=== PATIENT | female | born 1935 | race Caucasian/White ===

== ENCOUNTER 2018-03-30 10:04 | Inpatient (IN) | payer MEDICARE, BC ==
--- NOTE | 2018-03-30 11:14 | XR ---
EXAMINATION TYPE: XR shoulder complete RT DATE OF EXAM: 03/30/2018 CLINICAL HISTORY: Fall injury with right shoulder pain TECHNIQUE: Three views of the right shoulder are obtained. COMPARISON: None. FINDINGS: Osseous structures are demineralized. There is no acute fracture/dislocation evident in th e right shoulder. There is moderate to advanced joint space loss with mild to moderate spurring at ac romioclavicular joint. There is high riding humeral head suggesting chronic rotator cuff tear. There is moderate glenohumeral joint space loss. There is oval 1 cm ossific density likely reflecting loose body within joint space related to product of DJD. The visualized ribs are intact and unremarkable. Chronic parenchymal changes are seen in visualized right lung. IMPRESSION: There is no acute fracture or dislocation in the right shoulder.
--- NOTE | 2018-03-30 11:16 | XR ---
EXAMINATION TYPE: XR chest 1V DATE OF EXAM: 03/30/2018 COMPARISON: Chest x-ray October 20, 2016. HISTORY: Pain after fall injury. TECHNIQUE: Single frontal view of the chest is obtained. FINDINGS: There is chronic parenchymal change without suspicious new focal air space opacity, pleura l effusion, or pneumothorax seen. The cardiac silhouette size is enlarged with atherosclerotic aorta . Retrocardiac opacity consistent with hiatal hernia is present. There is chronic thickening of rig ht paratracheal stripe redemonstrated. Consider thyroid goiter. The osseous structures remain deminer alized. Underlying scoliosis is again seen. Degenerative change both shoulders is redemonstrated. IMPRESSION: Chronic changes and cardiomegaly without acute pulmonary process.
[2018-03-30] MEDS ORDERED: IPRATROPIUM-ALBUTEROL 3 ML NEB INHALATION STA (11:34)
[2018-03-30] MEDS ORDERED: SODIUM CHLORIDE 0.9% 1,000 ML IV STA (11:34)
--- NOTE | 2018-03-30 12:01 | ED ---
General Adult HPI - General Chief complaint: Fall Stated complaint: Fall Time Seen by Provider: 03/30/18 10:37 Source: patient, EMS, RN notes reviewed, old records reviewed Mode of arrival: EMS Limitations: no limitations - History of Present Illness Initial comments: This is an 83-year-old female to the ER for evaluation today. This patient's presenting for evaluation regards to falls, multiple falls with weakness. Shortness of breath, patient states she gets short of breath while walking and does fall down. Patient fell down landing on right side right shoulder right arm. Complaining of right arm pain. She states she always has had right arm pain was unable to move right arm. Also complaining of dehydration - Related Data Home Medications Medication Instructions Recorded Confirmed Kenneth Cit/Mag/D3/Zn/Wind Up Operator/Herber/Bor 1 tab PO DAILY 03/27/14 03/30/18 [Citracal-Vit D + Magnesium Tab] Levothyroxine Sodium [Synthroid] 25 mcg PO DAILY 03/27/14 03/30/18 Mirtazapine [Remeron] 45 mg PO HS 03/27/14 03/30/18 HYDROcodone/APAP 10-325MG [[place] 1 tab PO Q6H PRN 04/23/15 03/30/18 10-325] Benazepril/Hydrochlorothiazide 1 tab PO HS 10/19/16 03/30/18 [Benazepril-Hctz 20-25 mg Tab] Citalopram Hydrobromide [CeleXA] 20 mg PO DAILY 10/19/16 03/30/18 Pantoprazole Sodium [Protonix] 40 mg PO HS 10/19/16 03/30/18 Vitamin B Complex 1 cap PO DAILY 10/19/16 03/30/18 Etodolac [Lodine] 400 mg PO DAILY 03/30/18 03/30/18 Montelukast [Singulair] 10 mg PO DAILY 03/30/18 03/30/18 Previous Rx's Medication Instructions Recorded ALPRAZolam [Xanax] 0.25 mg PO BID #60 tab 10/21/16 Apixaban [Eliquis] 5 mg PO BID #70 tab 10/21/16 Cholecalciferol [Vitamin D3] 1,000 unit PO DAILY tab 10/21/16 Allergies Allergy/AdvReac Type Severity Reaction Status Date / Time epinephrine AdvReac Rapid Verified 03/30/18 10:37 Heart Rate Review of Systems ROS Statement: Those systems with pertinent positive or pertinent negative responses have been documented in the HPI. ROS Other: All systems not noted in ROS Statement are negative. Past Medical History Past Medical History: Asthma, GERD/Reflux, Hypertension, Osteoarthritis (OA), Thyroid Disorder Additional Past Medical History / Comment(s): ulcerative colitis, osteoporosis, scoliosis History of Any Multi-Drug Resistant Organisms: None Reported Past Surgical History: Appendectomy, Hysterectomy Additional Past Surgical History / Comment(s): thyroidectomy, orif right femur, right tib/fib, right shoulder surg. cataract surgery Past Anesthesia/Blood Transfusion Reactions: No Reported Reaction Past Psychological History: No Psychological Hx Reported Smoking Status: Never smoker Past Alcohol Use History: None Reported Past Drug Use History: None Reported - Past Family History Father Family Medical History: No Reported History Mother Family Medical History: Thyroid Disorder Additional Family Medical History / Comment(s): arthritis General Exam Limitations: no limitations General appearance: alert, in no apparent distress Head exam: Present: atraumatic, normocephalic, normal inspection Eye exam: Present: normal appearance, PERRL, EOMI. Absent: scleral icterus, conjunctival injection, periorbital swelling ENT exam: Present: normal exam, mucous membranes moist Neck exam: Present: normal inspection. Absent: tenderness, meningismus, lymphadenopathy Respiratory exam: Present: normal lung sounds bilaterally, wheezes, accessory muscle use, decreased breath sounds, prolonged expiratory. Absent: respiratory distress, rales, rhonchi, stridor Cardiovascular Exam: Present: regular rate, normal rhythm, normal heart sounds. Absent: systolic murmur, diastolic murmur, rubs, gallop, clicks GI/Abdominal exam: Present: soft, normal bowel sounds. Absent: distended, tenderness, guarding, rebound, rigid Extremities exam: Present: normal inspection, full ROM, normal capillary refill. Absent: tenderness, pedal edema, joint swelling, calf tenderness Back exam: Present: normal inspection Neurological exam: Present: alert, oriented X3, CN II-XII intact Psychiatric exam: Present: normal affect, normal mood Skin exam: Present: warm, dry, intact, normal color. Absent: rash Course Vital Signs 03/30/18 03/30/18 03/30/18 10:08 12:37 12:39 Temperature 98.8 F Pulse Rate 90 88 88 Respiratory 16 16 Rate Blood Pressure 144/85 161/74 O2 Sat by Pulse 96 91 L Oximetry 03/30/18 13:03 Temperature Pulse Rate 88 Respiratory Rate Blood Pressure O2 Sat by Pulse Oximetry - Reevaluation(s) Reevaluation #1: 03/30/18 13:16 After convincing patient extensively to get labs clinical status, weakness, clinical dehydration found to be in renal failure, patient refusing to admit to hospital, patient will sign an AGAINSTMEDICALADVICE understanding risk include significant decompensation including EKG Findings - EKG Comments: EKG Findings:: EKG shows normal sinus rhythm rate of 85, VT 198, QRS 84, QTC 456 Medical Decision Making - Medical Decision Making 83 female the ER for vaginal multiple falls and weakness. Patient does have severe renal failure secondary dehydration. Patient be admitted for IV resuscitation, monitoring and this PTOT - Lab Data Result diagrams: 03/30/18 12:23 03/30/18 12:23 Lab Results 03/30/18 03/30/18 03/30/18 Range/Units 12:23 12:23 12:23 WBC 8.2 (3.8-10.6) k/uL RBC 3.32 L (3.80-5.40) m/uL Hgb 9.5 L (11.4-16.0) gm/dL Hct 29.7 L (34.0-46.0) % MCV 89.5 (80.0-100.0) fL MCH 28.5 (25.0-35.0) pg MCHC 31.9 (31.0-37.0) g/dL RDW 15.2 (11.5-15.5) % Plt Count 211 (150-450) k/uL Neutrophils % 77 % Lymphocytes % 12 % Monocytes % 7 % Eosinophils % 2 % Basophils % 0 % Neutrophils # 6.3 (1.3-7.7) k/uL Lymphocytes # 0.9 L (1.0-4.8) k/uL Monocytes # 0.6 (0-1.0) k/uL Eosinophils # 0.1 (0-0.7) k/uL Basophils # 0.0 (0-0.2) k/uL PT (9.0-12.0) sec INR (<1.2) APTT (22.0-30.0) sec Sodium 143 (137-145) mmol/L Potassium 4.1 (3.5-5.1) mmol/L Chloride 102 (98-107) mmol/L Carbon Dioxide 28 (22-30) mmol/L Anion Gap 13 mmol/L BUN 48 H (7-17) mg/dL Creatinine 2.56 H (0.52-1.04) mg/dL Est GFR (CKD-EPI)AfAm 19 (>60 ml/min/1.73 sqM) Est GFR (CKD-EPI)NonAf 17 (>60 ml/min/1.73 sqM) Glucose 101 H (74-99) mg/dL Calcium 9.0 (8.4-10.2) mg/dL Phosphorus 4.6 H (2.5-4.5) mg/dL Magnesium 2.3 (1.6-2.3) mg/dL Total Bilirubin 0.6 (0.2-1.3) mg/dL AST 15 (14-36) U/L ALT 18 (9-52) U/L Alkaline Phosphatase 80 (38-126) U/L Total Creatine Kinase 89 (30-135) U/L CK-MB (CK-2) 0.7 (0.0-2.4) ng/mL CK-MB (CK-2) Rel Index 0.8 Troponin I <0.012 (0.000-0.034) ng/mL Total Protein 6.5 (6.3-8.2) g/dL Albumin 3.6 (3.5-5.0) g/dL Urine Color Urine Appearance (Clear) Urine pH (5.0-8.0) Ur Specific [place] (1.001-1.035) Urine Protein (Negative) Urine Glucose (UA) (Negative) Urine Ketones (Negative) Urine Blood (Negative) Urine Nitrite (Negative) Urine Bilirubin (Negative) Urine Urobilinogen (<2.0) mg/dL Ur Leukocyte Esterase (Negative) Ur Squamous Epith Cells (0-4) /hpf Amorphous Sediment (None) /hpf Urine Bacteria (None) /hpf Urine Mucus (None) /hpf 03/30/18 03/30/18 Range/Units 12:23 12:45 WBC (3.8-10.6) k/uL RBC (3.80-5.40) m/uL Hgb (11.4-16.0) gm/dL Hct (34.0-46.0) % MCV (80.0-100.0) fL MCH (25.0-35.0) pg MCHC (31.0-37.0) g/dL RDW (11.5-15.5) % Plt Count (150-450) k/uL Neutrophils % % Lymphocytes % % Monocytes % % Eosinophils % % Basophils % % Neutrophils # (1.3-7.7) k/uL Lymphocytes # (1.0-4.8) k/uL Monocytes # (0-1.0) k/uL Eosinophils # (0-0.7) k/uL Basophils # (0-0.2) k/uL PT 9.8 (9.0-12.0) sec INR 1.0 (<1.2) APTT 19.4 L (22.0-30.0) sec Sodium (137-145) mmol/L Potassium (3.5-5.1) mmol/L Chloride (98-107) mmol/L Carbon Dioxide (22-30) mmol/L Anion Gap mmol/L BUN (7-17) mg/dL Creatinine (0.52-1.04) mg/dL Est GFR (CKD-EPI)AfAm (>60 ml/min/1.73 sqM) Est GFR (CKD-EPI)NonAf (>60 ml/min/1.73 sqM) Glucose (74-99) mg/dL Calcium (8.4-10.2) mg/dL Phosphorus (2.5-4.5) mg/dL Magnesium (1.6-2.3) mg/dL Total Bilirubin (0.2-1.3) mg/dL AST (14-36) U/L ALT (9-52) U/L Alkaline Phosphatase (38-126) U/L Total Creatine Kinase (30-135) U/L CK-MB (CK-2) (0.0-2.4) ng/mL CK-MB (CK-2) Rel Index Troponin I (0.000-0.034) ng/mL Total Protein (6.3-8.2) g/dL Albumin (3.5-5.0) g/dL Urine Color Yellow Urine Appearance Clear (Clear) Urine pH 5.0 (5.0-8.0) Ur Specific [place] 1.015 (1.001-1.035) Urine Protein 1+ H (Negative) Urine Glucose (UA) Negative (Negative) Urine Ketones Negative (Negative) Urine Blood Negative (Negative) Urine Nitrite Negative (Negative) Urine Bilirubin 2+ H (Negative) Urine Urobilinogen <2.0 (<2.0) mg/dL Ur Leukocyte Esterase Negative (Negative) Ur Squamous Epith Cells 1 (0-4) /hpf Amorphous Sediment Rare H (None) /hpf Urine Bacteria Rare H (None) /hpf Urine Mucus Rare H (None) /hpf - Radiology Data Radiology results: report reviewed (X-ray chest and right shoulder negative for traumatic injury), image reviewed Disposition Clinical Impression: Fall, Right shoulder pain, Acute renal failure, Dehydration, Weakness Disposition: ADMITTED IP TO THIS [facility] Condition: Fair Is patient prescribed a controlled substance at d/c from ED?: No Referrals: German Joiner MD [Primary Care Provider] - 1-2 days
[2018-03-30 12:42] LABS: Basophils % (A) 0 %; Eosinophils # (A) 0.1 k/uL (0-0.7); Eosinophils % (A) 2 %; HCT 29.7 % (34.0-46.0); HGB 9.5 gm/dL (11.4-16.0); Lymphocytes # (A) 0.9 k/uL (1.0-4.8); Lymphocytes % (A) 12 %; MCH 28.5 pg (25.0-35.0); MCHC 31.9 g/dL (31.0-37.0); MCV 89.5 fL (80.0-100.0); Mean Platelet Volume 8.2; Monocytes # (A) 0.6 k/uL (0-1.0); Monocytes % (A) 7 %; Neutrophils # (A) 6.3 k/uL (1.3-7.7); Neutrophils % (A) 77 %; Platelet Count 211 k/uL (150-450); RBC 3.32 m/uL (3.80-5.40); RDW 15.2 % (11.5-15.5); WBC 8.2 k/uL (3.8-10.6)
[2018-03-30 12:53] LABS: Albumin 3.6 g/dL (3.5-5.0); Magnesium 2.3 mg/dL (1.6-2.3); Phosphorus 4.6 mg/dL (2.5-4.5); Potassium 4.1 mmol/L (3.5-5.1); Prothrombin Time 9.8 sec (9.0-12.0); Total Bilirubin 0.6 mg/dL (0.2-1.3); Total Protein 6.5 g/dL (6.3-8.2)
[2018-03-30 13:03] LABS: Creatine Kinase 89 U/L (30-135)
[2018-03-30 13:03] LABS: Amorphous Sediment,Urine Rare /hpf; Appearance,Urine Clear (Clear); Bacteria,Urine Rare /hpf; Bilirubin,Urine 2+ (Negative); Blood,Urine Negative (Negative); Color,Urine Yellow; Glucose,Urine (UA) Negative (Negative); Ketones,Urine Negative (Negative); Leukocyte Esterase,Urine Negative (Negative); Mucus,Urine Rare /hpf; Nitrite,Urine Negative (Negative); Protein,Urine 1+ (Negative); Specific Gravity,Urine 1.015 (1.001-1.035); Squamous Epithelial Cell,Urine 1 /hpf (0-4); Urobilinogen,Urine <2.0 mg/dL (<2.0)
[2018-03-30 13:05] LABS: Partial Thromboplastin Time 19.4 sec (22.0-30.0)
[2018-03-30 13:15] LABS: Creatine Kinase MB 0.7 ng/mL (0.0-2.4); Troponin I <0.012 ng/mL (0.000-0.034)
[2018-03-30] MEDS ORDERED: SODIUM CHLORIDE 0.9% 1,000 ML IV ONE (13:27)
[2018-03-30] MEDS: HYDROcodone/APAP 10-325MG 1 EACH TAB PO PRN (15:44)
[2018-03-30] MEDS: ALPRAZolam 0.25 MG TAB PO SCH (20:34)
[2018-03-30] MEDS: HYDROCHLOROTHIAZIDE 25 MG TAB PO SCH (20:34)
[2018-03-30] MEDS: MIRTAZAPINE 45 MG TABLET PO SCH (20:35)
[2018-03-30] MEDS: LISINOPRIL 20 MG TAB PO SCH (20:35)
[2018-03-30] MEDS: PANTOPRAZOLE 40 MG TABLET PO SCH (20:35)
--- NOTE | 2018-03-31 00:14 | HP ---
HISTORY AND PHYSICAL ATTENDING PHYSICIAN: Dr. Chris Joiner. CHIEF COMPLAINT: Fall at home. HISTORY OF PRESENT ILLNESS: An 83-year-old female was brought into the emergency room by the , where she had fallen a couple of days ago and complained of pain in the shoulder. He was concerned that the patient might have an injury. She was brought into the ER by ambulance. The patient did not want to come to the hospital. She denies any other symptoms. She did have some neck pain and shoulder pain. The patient took a fall a couple days ago getting out of the bed. The hospital tries to help her most of the time; however, sometimes she just tries to get out of bed on her own. The patient also is exhibiting some increased confusion over the past 3 days. The patient on evaluation in the emergency room was noted to have evidence suggestive of some acute renal failure suspected secondary to dehydration. The patient is admitted to the hospital in view of this. PAST MEDICAL HISTORY: Primarily significant for bronchial asthma, hypertension, DVT. 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 Due to this, she has some had some unsteadiness. The patient also has a history of depression, chronic arthritic symptoms, osteoporosis. No history of any liver disease or kidney disease, ulcers, TB, hepatitis. No history of rheumatic fever, myocardial infarction, CVA. Does exhibit mild cognitive impairments. PAST SURGICAL HISTORY: Significant for right knee arthroplasty and also right hand surgery, right femur surgery. PERSONAL HISTORY: Nonsmoker. No alcohol. ALLERGIES: Sensitive to EPINEPHRINE. MEDICATIONS: Include: 1. [place] 10/325 q.i.d. p.r.n. 2. Vitamin D3. 3. Vitamin B. 4. Eye vitamins. 5. Singular 10 mg daily. 6. Remeron 45 mg daily. 7. Benazepril/hydrochlorothiazide 20/25 one daily. 8. Eliquis 5 mg b.i.d. 9. Xanax 0.25 mg b.i.d. 10.Protonix 40 mg daily. 11.Synthroid 25 mcg daily. 12.Lodine 400 mg daily. 13.Celexa 20 mg daily. SOCIAL HISTORY: The patient is , lives with her spouse. FAMILY MEDICAL HISTORY: The patient has 1 son in good health. Mother from the osteoporosis and 1 brother with history of mitral regurgitation. REVIEW OF SYSTEMS: NEURO: Denies any headaches, dizziness. Denies any double vision, blurred vision. PSYCH: No anxiety. Being treated for depression. CARDIAC: Denies chest pain, angina, palpitation. RESPIRATORY: Denies shortness of breath, cough, hemoptysis. GI: No nausea, vomiting, abdominal pain, diarrhea. : No symptoms of dysuria, hematuria, urgency, frequency. EXTREMITIES: No pain. Mild chronic edema. CONSTITUTIONAL: No fever, chills. HEMATOLOGICAL: No anemia or bleeding disorder. ENDOCRINE: No history of diabetes mellitus. History of hypothyroidism. SKIN: No rashes. CONSTITUTIONAL: No fever, chills. PHYSICAL EXAMINATION: Pleasant female in no distress. VITAL SIGNS: Temperature 98.6, pulse 77, respirations 16, blood pressure 122/75, pulse ox 97% on 2L. HEENT: Normocephalic. Neck: Mildly decreased range of motion. Pupils reactive. Nostrils clear. Oral cavity moist. Ears reveal no drainage. Neck reveals no JVD, carotid bruits or thyromegaly. Chest is clear to auscultation. CARDIAC: Normal S1, S2 with no gallop. Systolic murmur 2/6 left sternal border. ABDOMEN: Soft. No palpable masses. Bowel sounds normal. No organomegaly. No abdominal bruits. Extremities reveal trace edema of the right lower leg. The patient's right shoulder has some pain, but decreased range of motion. Neurologically, otherwise mildly confused intermittently. Otherwise, the patient has equal hand grasps, moves both arms adequately except for mild range of motion decreased of the shoulder due to pain. Plantars are equivocal. LABORATORY ASSESSMENT: Hemoglobin 9.5. INR is normal. Electrolytes normal. BUN 48, creatinine 2.56. Phosphorus 4.6. Troponins negative. UA was 2+ bilirubin, 1+ protein, otherwise unremarkable. ASSESSMENT: 1. Acute renal failure secondary to dehydration. 2. Dehydration. 3. Mild cognitive impairment. 4. Hypertension. 5. Degenerative arthritis. 6. Fall at home. PLAN: Patient at present is stable. Continue present medical regimen. Will continue hydration and recheck the patient's lytes, BUN and creatinine in the morning. I had a long discussion with the patient and spouse regarding potential placement for rehab and they are in agreement. The patient has been to [facility] before and prefers to go there. The patient's condition discussed with the patient. MMODL / IJN: [id number] /
[2018-03-31] MEDS: LEVOTHYROXINE 25 MCG TAB PO SCH (07:26)
[2018-03-31 07:54] LABS: Calcium 9.2 mg/dL (8.4-10.2); HCT 27.4 % (34.0-46.0); HGB 9.1 gm/dL (11.4-16.0); MCH 29.8 pg (25.0-35.0); MCHC 33.1 g/dL (31.0-37.0); MCV 90.1 fL (80.0-100.0); Mean Platelet Volume 8.3; Platelet Count 228 k/uL (150-450); RBC 3.04 m/uL (3.80-5.40); RDW 14.8 % (11.5-15.5); WBC 6.5 k/uL (3.8-10.6)
[2018-03-31] MEDS: MONTELUKAST 10 MG TAB PO SCH (08:58)
[2018-03-31] MEDS: ENOXAPARIN 40 MG/0.4 ML SYRINGE SQ SCH (08:58)
[2018-03-31] MEDS: MULTIVITAMINS, THERA 1 EACH TAB PO SCH (08:58)
[2018-03-31] MEDS: B COMPLEX-VIT C-VIT E-ZINC 1 EACH TAB PO SCH (08:58)
[2018-03-31] MEDS: CITALOPRAM HYDROBROMIDE 20 MG TAB PO SCH (08:58)
[2018-03-31] MEDS: CHOLECALCIFEROL 1,000 UNIT TAB PO SCH (08:58)
[2018-03-31] MEDS: ALPRAZolam 0.25 MG TAB PO SCH ×2 (10:15→21:53)
[2018-03-31] MEDS: HYDROcodone/APAP 10-325MG 1 EACH TAB PO PRN ×3 (11:29→22:41)
[2018-03-31 12:37] LABS: Iron Saturation 6.45 (12.00-45.00)
[2018-03-31] MEDS: MIRTAZAPINE 45 MG TABLET PO SCH (21:53)
[2018-03-31] MEDS: HYDROCHLOROTHIAZIDE 25 MG TAB PO SCH (21:53)
[2018-03-31] MEDS: LISINOPRIL 20 MG TAB PO SCH (21:53)
[2018-03-31] MEDS: PANTOPRAZOLE 40 MG TABLET PO SCH (21:53)
[2018-04-01] MEDS: HYDROcodone/APAP 10-325MG 1 EACH TAB PO PRN ×3 (05:27→21:01)
[2018-04-01] MEDS ORDERED: SODIUM FERRIC GLUCONAT-SUCROSE 125 MG in SODIUM CHLORIDE 0.9% 100 ML IVPB SCH (09:00)
[2018-04-01] MEDS: ALPRAZolam 0.25 MG TAB PO SCH ×2 (09:13→21:01)
[2018-04-01] MEDS: LEVOTHYROXINE 25 MCG TAB PO SCH (09:13)
[2018-04-01] MEDS: B COMPLEX-VIT C-VIT E-ZINC 1 EACH TAB PO SCH (09:14)
[2018-04-01] MEDS: ENOXAPARIN 40 MG/0.4 ML SYRINGE SQ SCH (09:14)
[2018-04-01] MEDS: CHOLECALCIFEROL 1,000 UNIT TAB PO SCH (09:15)
[2018-04-01] MEDS: MONTELUKAST 10 MG TAB PO SCH (09:15)
[2018-04-01] MEDS: CITALOPRAM HYDROBROMIDE 20 MG TAB PO SCH (09:15)
[2018-04-01] MEDS ORDERED: FUROSEMIDE 10 MG/ML 2 ML VIAL IV ONE (09:53)
--- NOTE | 2018-04-01 11:33 | P.PN ---
Subjective Progress Note Date: 04/01/18 This 83-year-old female was admitted to the hospital after being brought in the emergency room following a mechanical fall and these about 2 days prior to admission. Patient was complaining of significant pain just laying around the bed. The spouse elected to bring her in the emergency room to be evaluated. She is noted to have markedly elevated BUN/creatinine with a GFR of 17. Patient 's felt to be dehydrated. There was no dizziness prior to the fall. She is in view of this admitted to the hospital hydrated. The patient's renal function is improved. She does have underlying in the history of chronic kidney disease stage III and she is back to baseline. Patient does have a long-standing history of hypertension, degenerative arthritis underlying depression with lack of motivation. The patient has a history of falls in the past. 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 In view of this she does have some disequilibrium. She does use a walker at home. The patient due to her lack of motivation is not very active. The spouse tries hard to get her moving. She is to see physical therapist on the outpatient and does well for a while. Does have underlying mild cognitive impairment REVIEW OF SYSTEMS: Neuro: Denies any headaches dizziness. Psych: No anxiety depression Cardiac: Denies chest pain and angina palpitations. Respiratory: Denies shortness of breath cough. GI: Denies nausea vomiting or abdominal pain. No diarrhea or constipation, no bowel movement yet. Poor appetite : Denies dysuria hematuria. Extremities: Denies pain. No edema. Skin: Intact. Constitutional: No fever, chills. Objective - Vital Signs Vital signs: Vital Signs Temp 98.2 F 04/01/18 07:00 Pulse 73 04/01/18 07:00 Resp 15 04/01/18 07:00 BP 137/77 04/01/18 07:00 Pulse Ox 92 L 04/01/18 07:00 Intake & Output 03/31/18 04/01/18 04/01/18 18:59 06:59 18:59 Intake Total 625 1840 Balance 625 1840 Intake: Intake, IV Titration 800 Amount Sodium Chloride 0.9% 1, 800 000 ml @ 100 mls/hr IV . Q10H ONE Rx#:[id number] Oral 363 1040 Other: Voiding Method Bedpan Bedpan Bedpan Incontinent Incontinent Incontinent # Voids 3 2 # Bowel Movements 4 PHYSICAL EXAMINATION: Cooperative, at present in no acute distress. HEENT: Neck decreased range of motion no JVD Chest: Clear to auscultation Cardiac: Normal S1-S2 no gallops no murmur . Abdomen: Soft bowel sounds present. Extremities: No edema no tenderness Neurologically: Awake oriented to person moves both upper and lower extremities adequately - Labs CBC & Chem 7: 03/31/18 07:05 03/31/18 07:05 Labs: Abnormal Lab Results - Last 24 Hours (Table) 03/31/18 Range/Units 07:05 Iron 18 L (50-170) ug/dL Iron Saturation 6.45 L (12.00-45.00) Microbiology - Last 24 Hours (Table) 03/30/18 12:45 Urine Culture - Final Urine,Voided Assessment and Plan Assessment: ASSESSMENT: 1. Acute on chronic renal failure resolved. 2. Dehydration. 3. Chronic kidney disease stage III secondary to hypertensive nephropathy. 4. Hypertension benign. 5. Cognitive impairment. 6. Fall at home. 7. Right shoulder pain. 8. Depression 9. Debility. PLAN: Continue present medical regimen patient's condition is discussed with the patient. Awaiting transfer to nursing facility for rehab will discontinue patient's IV fluids today. Patient out of bed to try and help ambulate. .
--- NOTE | 2018-04-01 12:01 | PN ---
PROGRESS NOTE DATE OF SERVICE: 03/31/2018 CHIEF COMPLAINT: Re-evaluation. This patient was seen on 03/31/2018 for followup. The patient was admitted to the hospital because of acute renal failure secondary to dehydration. The patient had a fall at home a couple of days prior. The patient was seen in the ER because of pain in the shoulder. The patient also has had history of falls. She has generalized weakness, lying in bed most of the time. Denied any dizziness before the fall. The patient has some degree of underlying mild dementia. She has a long-standing history of hypertension. The patient is feeling better today. REVIEW OF SYSTEMS: NEURO: Denies any headaches, dizziness. PSYCH: No anxiety. CARDIAC: Denies chest pain, angina, palpitation. RESPIRATORY: Denies shortness of breath, cough. GI: No nausea, vomiting, abdominal pain, diarrhea. No bowel movement. : No symptoms of dysuria, hematuria. EXTREMITIES: Denies pain, edema. CONSTITUTIONAL: No fever, chills. PHYSICAL EXAMINATION: Pleasant female in no distress. Vital signs revealed temperature 98.3, pulse 77, respiration 15, blood pressure 121/70, pulse ox 91% on room air. HEENT: Normocephalic. NECK: No JVD. CHEST: Clear to auscultation. CARDIAC: Distant heart sounds S1, S2 with no gallop. Systolic murmur 2/6, left sternal border. ABDOMEN: Soft. Bowel sounds present. Extremities reveal no edema. Neurologically awake, alert, oriented to person, place. Moves both upper and lower extremities. She has some pain with movements of the right shoulder area. LABORATORY ASSESSMENT: Hemoglobin stable at 9.1, BUN 26, creatinine 1.09. ASSESSMENT: 1. Acute renal failure, resolved. 2. Chronic kidney disease. 3. Dehydration, resolved. 4. Chronic anemia, iron deficiency. 5. Mild dementia. 6. Degenerative arthritis. 7. Fall at home. 8. Depression. PLAN: Continue present medical regimen. Patient's condition discussed with the patient. Prognosis guarded. Potential transfer to nursing facility for rehab. MMJULIET / LESLY: [id number] /
[2018-04-01] MEDS: MULTIVITAMINS, THERA 1 EACH TAB PO SCH (13:16)
[2018-04-01] MEDS: HYDROCHLOROTHIAZIDE 25 MG TAB PO SCH (21:02)
[2018-04-01] MEDS: PANTOPRAZOLE 40 MG TABLET PO SCH (21:02)
[2018-04-01] MEDS: LISINOPRIL 20 MG TAB PO SCH (21:02)
[2018-04-01] MEDS: MIRTAZAPINE 45 MG TABLET PO SCH (21:02)
[2018-04-01] MEDS ORDERED: DOCUSATE 100 MG CAP PO PRN (21:44)
[2018-04-01] MEDS: DOCUSATE 100 MG CAP PO SCH (22:30)
[2018-04-02] MEDS: LEVOTHYROXINE 25 MCG TAB PO SCH (06:07)
[2018-04-02] MEDS: B COMPLEX-VIT C-VIT E-ZINC 1 EACH TAB PO SCH (08:27)
[2018-04-02] MEDS: ENOXAPARIN 40 MG/0.4 ML SYRINGE SQ SCH (08:27)
[2018-04-02] MEDS: DOCUSATE 100 MG CAP PO SCH ×2 (08:27→19:50)
[2018-04-02] MEDS: CHOLECALCIFEROL 1,000 UNIT TAB PO SCH (08:27)
[2018-04-02] MEDS: MONTELUKAST 10 MG TAB PO SCH (08:27)
[2018-04-02] MEDS: HYDROcodone/APAP 10-325MG 1 EACH TAB PO PRN ×3 (08:28→21:46)
[2018-04-02] MEDS: ALPRAZolam 0.25 MG TAB PO SCH ×2 (08:28→19:50)
[2018-04-02] MEDS: CITALOPRAM HYDROBROMIDE 20 MG TAB PO SCH (08:57)
[2018-04-02] MEDS: MULTIVITAMINS, THERA 1 EACH TAB PO SCH (11:23)
[2018-04-02] MEDS: PANTOPRAZOLE 40 MG TABLET PO SCH (19:51)
[2018-04-02] MEDS: MIRTAZAPINE 45 MG TABLET PO SCH (19:51)
[2018-04-02] MEDS: LISINOPRIL 20 MG TAB PO SCH (19:51)
[2018-04-02] MEDS: HYDROCHLOROTHIAZIDE 25 MG TAB PO SCH (19:51)
--- NOTE | 2018-04-03 00:02 | PN ---
PROGRESS NOTE DATE OF SERVICE: 04/02/2018. CHIEF COMPLAINT: Reevaluation. HISTORY OF PRESENT ILLNESS: An 83-year-old female admitted to this facility after a fall at home. The patient was noted to have acute renal failure secondary to dehydration. The patient also has underlying history of significant degenerative arthritis and chronic pain. The patient has low motivation. REVIEW OF SYSTEMS: NEURO: Denies any headaches or dizziness. PSYCH: No anxiety. CARDIAC: No chest pain, angina, palpitation. RESPIRATORY: No shortness of breath, cough. GI: No nausea, vomiting, abdominal pain, diarrhea, appetite is poor. : No symptoms of dysuria or hematuria. EXTREMITIES: Pain in the right shoulder. CONSTITUTIONAL: No fevers or chills. PHYSICAL EXAMINATION: Pleasant female in no distress. VITAL SIGNS: Temperature 98.2, pulse 70, respirations 16, blood pressure 144/82, pulse ox 97% on 2 L. HEENT: Normocephalic. NECK: Supple. No JVD. CHEST: Clear to auscultation. CARDIAC: Normal S1, S2 with no gallops. EXTREMITIES: No edema. Good pulses both upper and lower extremities. NEUROLOGIC: Awake, alert, oriented. No edema. Good pulses both upper lower extremities. NEUROLOGIC: Awake, alert, oriented to person. She has evidence of mild dementia. Moves both upper and lower extremities adequately. LABORATORY ASSESSMENT: None new. ASSESSMENT: 1. Dehydration resolved. 2. Acute renal failure secondary to dehydration. 3. Chronic kidney disease. 4. Anemia, iron deficiency. 5. Depression. 6. Debility. PLAN: 1. Continue present medication. 2. Patient awaiting transfer to nursing facility for rehab. MMODL / IJN: [id number] /
[2018-04-03] MEDS: LEVOTHYROXINE 25 MCG TAB PO SCH (05:11)
--- NOTE | 2018-04-03 08:24 | P.DS ---
Providers Date of admission: 03/30/18 13:28 Attending physician: German Joiner Primary care physician: German Joiner [facility] Course: This 83-year-old female was admitted to the hospital after evaluation in the emergency room. She had fallen couple days prior and a complaint of shoulder pain. The patient was brought in the emergency room by the family to be evaluated for any fractures. Following evaluation no fractures noted. The patient however was noted to have acute renal failure with dehydration. The patient does have a history of chronic kidney disease stage III. The patient has not been drinking enough fluids. IV fluids administered with hydration patient's renal function back to baseline. Patient somewhat more alert. She does have underlying depression on medical therapy for the same. The patient is quite disabled because of inactivity. She is at high risk for falls and has had previous falls with fractures. In view of this the patient's recommended rehabilitation. Patient's eating fair advised to drink more fluids. Diagnoses: 1. Acute on chronic renal failure 2. Chronic kidney disease stage III 3. Hypertension 4. Dehydration 5 depression 6 osteoporosis 7 chronic anxiety 8 hypothyroidism Patient Condition at Discharge: Fair Plan - Discharge Summary Discharge Rx Participant: Yes New Discharge Prescriptions: Continue Levothyroxine Sodium [Synthroid] 25 mcg PO DAILY Mirtazapine [Remeron] 45 mg PO HS Kenneth Cit/Mag/D3/Zn/Water Meter Mechanic/Herber/Bor [Citracal-Vit D + Magnesium Tab] 1 tab PO DAILY HYDROcodone/APAP 10-325MG [[place] 10-325] 1 tab PO Q6H PRN PRN Reason: Pain Citalopram Hydrobromide [CeleXA] 20 mg PO DAILY Pantoprazole Sodium [Protonix] 40 mg PO HS Benazepril/Hydrochlorothiazide [Benazepril-Hctz 20-25 mg Tab] 1 tab PO HS Vitamin B Complex 1 cap PO DAILY Apixaban [Eliquis] 5 mg PO BID #70 tab Cholecalciferol [Vitamin D3] 1,000 unit PO DAILY tab ALPRAZolam [Xanax] 0.25 mg PO BID #60 tab Montelukast [Singulair] 10 mg PO DAILY Discontinued Etodolac [Lodine] 400 mg PO DAILY Discharge Medication List Kenneth Cit/Mag/D3/Zn/Water Meter Mechanic/Herber/Bor [Citracal-Vit D + Magnesium Tab] 1 tab PO DAILY 03/27/14 [History] Levothyroxine Sodium [Synthroid] 25 mcg PO DAILY 03/27/14 [History] Mirtazapine [Remeron] 45 mg PO HS 03/27/14 [History] HYDROcodone/APAP 10-325MG [[place] 10-325] 1 tab PO Q6H PRN 04/23/15 [History] Benazepril/Hydrochlorothiazide [Benazepril-Hctz 20-25 mg Tab] 1 tab PO HS [History] Citalopram Hydrobromide [CeleXA] 20 mg PO DAILY 10/19/16 [History] Pantoprazole Sodium [Protonix] 40 mg PO HS 10/19/16 [History] Vitamin B Complex 1 cap PO DAILY 10/19/16 [History] ALPRAZolam [Xanax] 0.25 mg PO BID #60 tab 10/21/16 [Rx] Apixaban [Eliquis] 5 mg PO BID #70 tab 10/21/16 [Rx] Cholecalciferol [Vitamin D3] 1,000 unit PO DAILY tab 10/21/16 [Rx] Montelukast [Singulair] 10 mg PO DAILY 03/30/18 [History] Follow up Appointment(s)/Referral(s): German Joiner MD [Primary Care Provider] - 1-2 days
[2018-04-03] MEDS: ENOXAPARIN 40 MG/0.4 ML SYRINGE SQ SCH (08:36)
[2018-04-03] MEDS: ALPRAZolam 0.25 MG TAB PO SCH ×2 (08:36→20:33)
[2018-04-03] MEDS: B COMPLEX-VIT C-VIT E-ZINC 1 EACH TAB PO SCH (08:36)
[2018-04-03] MEDS: CITALOPRAM HYDROBROMIDE 20 MG TAB PO SCH (08:36)
[2018-04-03] MEDS: MULTIVITAMINS, THERA 1 EACH TAB PO SCH (08:36)
[2018-04-03] MEDS: CHOLECALCIFEROL 1,000 UNIT TAB PO SCH (08:36)
[2018-04-03] MEDS: MONTELUKAST 10 MG TAB PO SCH (08:36)
[2018-04-03] MEDS: DOCUSATE 100 MG CAP PO SCH ×2 (08:36→20:33)
[2018-04-03] MEDS: HYDROcodone/APAP 10-325MG 1 EACH TAB PO PRN ×3 (11:20→23:02)
[2018-04-03] MEDS ORDERED: ALPRAZolam 0.25 MG TAB PO STA (16:05)
[2018-04-03] MEDS: PANTOPRAZOLE 40 MG TABLET PO SCH (20:33)
[2018-04-03] MEDS: MIRTAZAPINE 45 MG TABLET PO SCH (20:33)
[2018-04-03] MEDS: LISINOPRIL 20 MG TAB PO SCH (20:33)
[2018-04-03] MEDS: HYDROCHLOROTHIAZIDE 25 MG TAB PO SCH (20:33)
[2018-04-03 23:35] VITALS: RESP 14
--- NOTE | 2018-04-03 23:54 | PN ---
PROGRESS NOTE CHIEF COMPLAINT: Re-evaluation. HISTORY OF PRESENT ILLNESS: This elderly female, 83 years of age, was admitted to the hospital after a fall at home. The patient was noted to be dehydrated and had acute on chronic renal failure. The patient's dehydration resolved. The patient's renal function is back to baseline. The patient has significant weakness, high risk of falling. The patient is recommended physical therapy and rehabilitation. Patient is awaiting possible transfer to a nursing facility for the same. REVIEW OF SYSTEMS: NEURO: Denies any headaches, dizziness. PSYCH: No anxiety. The patient has some depression. CARDIAC: No chest pain, angina, palpitation. RESPIRATORY: No shortness of breath, cough. GI: No nausea, vomiting, abdominal pain, diarrhea. : No symptoms of dysuria, hematuria. EXTREMITIES: Denies pain. CONSTITUTIONAL: No fever or chills. PHYSICAL EXAMINATION: Pleasant female in no distress. Vital signs revealed temperature 98.6, pulse 78, respirations 16, blood pressure 152/85, pulse ox 97% on 2 L. HEENT: Normocephalic. NECK: No JVD. CHEST: Clear to auscultation. CARDIAC: Normal S1, S2 with no gallops, murmurs. ABDOMEN: Soft. Bowel sounds present. EXTREMITIES: No edema. Neurologically awake, alert, oriented to place, person. Moves both upper and lower extremities adequately. LABORATORY ASSESSMENT: None. ASSESSMENT: 1. Acute on chronic renal failure, improved. 2. Chronic kidney disease, stage III. 3. Hypertension. 4. Hypothyroidism. 5. Cognitive impairment. 6. Depression. 7. Recent fall. 8. Debility. PLAN: The patient is stable. Continue present medical regimen. Patient's condition was discussed with the patient. Awaiting possible transfer to rehab. MMODL / IJN: [id number] /
[2018-04-04] MEDS: LEVOTHYROXINE 25 MCG TAB PO SCH (05:58)
[2018-04-04] MEDS: B COMPLEX-VIT C-VIT E-ZINC 1 EACH TAB PO SCH (08:44)
[2018-04-04] MEDS: CHOLECALCIFEROL 1,000 UNIT TAB PO SCH (08:44)
[2018-04-04] MEDS: ALPRAZolam 0.25 MG TAB PO SCH (08:44)
[2018-04-04] MEDS: MONTELUKAST 10 MG TAB PO SCH (08:45)
[2018-04-04] MEDS: ENOXAPARIN 40 MG/0.4 ML SYRINGE SQ SCH (08:45)
[2018-04-04] MEDS: CITALOPRAM HYDROBROMIDE 20 MG TAB PO SCH (08:45)
[2018-04-04] MEDS: DOCUSATE 100 MG CAP PO SCH (08:45)
[2018-04-04] MEDS: MULTIVITAMINS, THERA 1 EACH TAB PO SCH (08:45)
[2018-04-04 09:34] VITALS: BP 164/90; PULSE 78; TEMP 98.1
[2018-04-04] MEDS: HYDROcodone/APAP 10-325MG 1 EACH TAB PO PRN (10:11)
== END 2018-04-04 14:00 | DRG 684 ==
LOC: EC 10:04 → 3SUR 13:28
PROVIDERS: ADMIT Internal Medicine; ATTEND Internal Medicine
DX: N17.9 Acute kidney failure, unspecified (principal); D50.9 Iron deficiency anemia, unspecified; E86.0 Dehydration; E89.0 Postprocedural hypothyroidism; F03.90 Unspecified dementia, unspecified severity, without behavioral disturbance, psychotic disturbance, mood disturbance, and anxiety; F32.9 Major depressive disorder, single episode, unspecified; F41.9 Anxiety disorder, unspecified; I12.9 Hypertensive chronic kidney disease with stage 1 through stage 4 chronic kidney disease, or unspecified chronic kidney disease; J45.909 Unspecified asthma, uncomplicated; K21.9 Gastro-esophageal reflux disease without esophagitis; M19.90 Unspecified osteoarthritis, unspecified site; M41.9 Scoliosis, unspecified; M81.0 Age-related osteoporosis without current pathological fracture; N18.3 Chronic kidney disease, stage 3 (moderate); R29.6 Repeated falls; G89.29 Other chronic pain; M25.511 Pain in right shoulder; M54.2 Cervicalgia; M79.601 Pain in right arm; R32 Unspecified urinary incontinence; Z79.01 Long term (current) use of anticoagulants; Z79.890 Hormone replacement therapy; Z79.899 Other long term (current) drug therapy; Z88.8 Allergy status to other drugs, medicaments and biological substances; Z90.710 Acquired absence of both cervix and uterus; Z98.49 Cataract extraction status, unspecified eye; Z96.1 Presence of intraocular lens; Z90.49 Acquired absence of other specified parts of digestive tract; Z82.62 Family history of osteoporosis; Z82.49 Family history of ischemic heart disease and other diseases of the circulatory system; W19.XXXA Unspecified fall, initial encounter; Y92.009 Unspecified place in unspecified non-institutional (private) residence as the place of occurrence of the external cause
CPT/HCPCS: 36415; 71045; 80048; 80053; 81001; 82550; 82553; 82728; 83540; 83550; 83735; 84100; 84484; 85025; 85027; 85610; 85730; 87086; 93005; 94640; 94760; 96360; 99285

== ENCOUNTER 2019-06-15 08:51 | Emergency (ER) | payer MEDICARE, BC ==
[2019-06-15 09:01] VITALS: RESP 18; TEMP 98.5
--- NOTE | 2019-06-15 10:04 | ED ---
General Adult HPI - General Chief complaint: Fall Stated complaint: Back pain Time Seen by Provider: 06/15/19 09:00 Source: patient, RN notes reviewed Mode of arrival: EMS Limitations: no limitations - History of Present Illness Initial comments: This is an 84-year-old female presents emergency Department with her . Patient states she doesn't need to be here and has no complaints. states she fell last and has been having increased arm pain and he would like an x-ray. also states she's becoming weaker and weaker and he would like at least a small workup to determine if there is any reason for her being week because it is difficult to bring her to the doctor's. - Related Data Home Medications Medication Instructions Recorded Confirmed Levothyroxine Sodium [Synthroid] 25 mcg PO DAILY 03/27/14 06/15/19 Mirtazapine [Remeron] 45 mg PO HS 03/27/14 06/15/19 Benazepril/Hydrochlorothiazide 1 tab PO HS 10/19/16 06/15/19 [Benazepril-Hctz 20-25 mg Tab] Citalopram Hydrobromide [CeleXA] 20 mg PO DAILY 10/19/16 06/15/19 Pantoprazole Sodium [Protonix] 40 mg PO HS 10/19/16 06/15/19 Montelukast [Singulair] 10 mg PO DAILY 03/30/18 06/15/19 ALPRAZolam [Xanax] 0.25 mg PO TID PRN 06/15/19 06/15/19 Etodolac [Lodine] 400 mg PO DAILY 06/15/19 06/15/19 Previous Rx's Medication Instructions Recorded Nitrofurantoin Monohyd/M-Cryst 100 mg PO Q12HR #14 cap 06/15/19 [Macrobid] Allergies Allergy/AdvReac Type Severity Reaction Status Date / Time epinephrine AdvReac Rapid Verified 06/15/19 09:19 Heart Rate Review of Systems ROS Statement: Those systems with pertinent positive or pertinent negative responses have been documented in the HPI. ROS Other: All systems not noted in ROS Statement are negative. Past Medical History Past Medical History: Asthma, Deep Vein Thrombosis (DVT), GERD/Reflux, Hypertension, Osteoarthritis (OA), Pneumonia, Thyroid Disorder Additional Past Medical History / Comment(s): Bronchitis, sinus problems, R femoral vein DVT, arthritis multiple joints, osteoporosis, scoliosis, occasional back pain, multiple fractures, falls, double vision in r eye at times, ulcerative colitis once, hypothyriod, incontinent or urine at times. History of Any Multi-Drug Resistant Organisms: None Reported Past Surgical History: Appendectomy, Hysterectomy Additional Past Surgical History / Comment(s): thyroidectomy d/t goiter, orif right femur/ has pins, right tib/fib, right shoulder surgery twice, bilateral cataract surgery with lens implants, R eye strabismus surgery, epidural injections to back. Past Anesthesia/Blood Transfusion Reactions: No Reported Reaction Past Psychological History: No Psychological Hx Reported Smoking Status: Never smoker Past Alcohol Use History: None Reported Past Drug Use History: None Reported - Past Family History Father Family Medical History: Myocardial Infarction (NE) Additional Family Medical History / Comment(s): Father of a NE at the age of 78yrs. Mother Family Medical History: Thyroid Disorder Additional Family Medical History / Comment(s): arthritis General Exam - General Exam Comments Initial Comments: GENERAL: Patient is well-developed and well-nourished. Patient is nontoxic and well- hydrated and is in no acute distress. ENT: Neck is soft and supple. No significant lymphadenopathy is noted. Oropharynx is clear. Moist mucous membranes. Neck has full range of motion without eliciting any pain. EYES: The sclera were anicteric and conjunctiva were pink and moist. Extraocular movements were intact and pupils were equal round and reactive to light. Eyelids were unremarkable. PULMONARY: Unlabored respirations. Good breath sounds bilaterally. No audible rales rho nchi or wheezing was noted. CARDIOVASCULAR: There is a regular rate and rhythm without any murmurs gallops or rubs. ABDOMEN: Soft and nontender with normal bowel sounds. No palpable organomegaly was noted. There is no palpable pulsatile mass. SKIN: Skin is clear with no lesions or rashes and otherwise unremarkable. NEUROLOGIC: Patient is alert and oriented x3. Cranial nerves II through XII are grossly intact. Motor and sensory are also intact. Normal speech, volume and content. Symmetrical smile. MUSCULOSKELETAL: Normal extremities with adequate strength and full range of motion. No lower extremity swelling or edema. No calf tenderness. LYMPHATICS: No significant lymphadenopathy is noted PSYCHIATRIC: Normal psychiatric evaluation. Limitations: no limitations Course Vital Signs 06/15/19 08:57 Temperature 98.5 F Pulse Rate 76 Respiratory 18 Rate Blood Pressure 145/84 O2 Sat by Pulse 96 Oximetry Medical Decision Making - Medical Decision Making EKG shows sinus rhythm at 66 bpm ME interval is 212 QRS is 92 QT interval is 416 QTC is 436. Patient's EKG shows no ST segment elevation or depression or T wave abnormalities are noted. Bilateral humerus x-ray showed no fracture. Chest x-ray shows possible subacute to acute fractures of the fourth through sixth ribs. Patient denies pain there. - Lab Data Result diagrams: 06/15/19 10:12 06/15/19 10:12 Lab Results 06/15/19 06/15/19 06/15/19 Range/Units 10:12 10:12 10:12 WBC 6.0 (3.8-10.6) k/uL RBC 3.40 L (3.80-5.40) m/uL Hgb 9.1 L (11.4-16.0) gm/dL Hct 30.8 L (34.0-46.0) % MCV 90.6 (80.0-100.0) fL MCH 26.9 (25.0-35.0) pg MCHC 29.7 L (31.0-37.0) g/dL RDW 15.6 H (11.5-15.5) % Plt Count 274 (150-450) k/uL Neutrophils % 71 % Lymphocytes % 17 % Monocytes % 7 % Eosinophils % 3 % Basophils % 0 % Neutrophils # 4.2 (1.3-7.7) k/uL Lymphocytes # 1.0 (1.0-4.8) k/uL Monocytes # 0.4 (0-1.0) k/uL Eosinophils # 0.2 (0-0.7) k/uL Basophils # 0.0 (0-0.2) k/uL Hypochromasia Slight PT (9.0-12.0) sec INR (<1.2) APTT (22.0-30.0) sec Sodium 140 (137-145) mmol/L Potassium 4.8 (3.5-5.1) mmol/L Chloride 100 (98-107) mmol/L Carbon Dioxide 32 H (22-30) mmol/L Anion Gap 8 mmol/L BUN 38 H (7-17) mg/dL Creatinine 1.23 H (0.52-1.04) mg/dL Est GFR (CKD-EPI)AfAm 47 (>60 ml/min/1.73 sqM) Est GFR (CKD-EPI)NonAf 41 (>60 ml/min/1.73 sqM) Glucose 83 (74-99) mg/dL Plasma Lactic Acid Zachary 1.2 (0.7-2.0) mmol/L Calcium 9.5 (8.4-10.2) mg/dL Total Bilirubin 0.6 (0.2-1.3) mg/dL AST 25 (14-36) U/L ALT 9 (9-52) U/L Alkaline Phosphatase 67 (38-126) U/L Troponin I (0.000-0.034) ng/mL Total Protein 7.7 (6.3-8.2) g/dL Albumin 3.8 (3.5-5.0) g/dL Urine Color Urine Appearance (Clear) Urine pH (5.0-8.0) Ur Specific [place] (1.001-1.035) Urine Protein (Negative) Urine Glucose (UA) (Negative) Urine Ketones (Negative) Urine Blood (Negative) Urine Nitrite (Negative) Urine Bilirubin (Negative) Urine Urobilinogen (<2.0) mg/dL Ur Leukocyte Esterase (Negative) Urine RBC (0-5) /hpf Urine WBC (0-5) /hpf Ur Squamous Epith Cells (0-4) /hpf Urine Bacteria (None) /hpf Hyaline Casts (0-2) /lpf Urine Mucus (None) /hpf 06/15/19 06/15/19 06/15/19 Range/Units 10:12 10:12 12:51 WBC (3.8-10.6) k/uL RBC (3.80-5.40) m/uL Hgb (11.4-16.0) gm/dL Hct (34.0-46.0) % MCV (80.0-100.0) fL MCH (25.0-35.0) pg MCHC (31.0-37.0) g/dL RDW (11.5-15.5) % Plt Count (150-450) k/uL Neutrophils % % Lymphocytes % % Monocytes % % Eosinophils % % Basophils % % Neutrophils # (1.3-7.7) k/uL Lymphocytes # (1.0-4.8) k/uL Monocytes # (0-1.0) k/uL Eosinophils # (0-0.7) k/uL Basophils # (0-0.2) k/uL Hypochromasia PT 10.0 (9.0-12.0) sec INR 0.9 (<1.2) APTT 22.3 (22.0-30.0) sec Sodium (137-145) mmol/L Potassium (3.5-5.1) mmol/L Chloride (98-107) mmol/L Carbon Dioxide (22-30) mmol/L Anion Gap mmol/L BUN (7-17) mg/dL Creatinine (0.52-1.04) mg/dL Est GFR (CKD-EPI)AfAm (>60 ml/min/1.73 sqM) Est GFR (CKD-EPI)NonAf (>60 ml/min/1.73 sqM) Glucose (74-99) mg/dL Plasma Lactic Acid Zachary (0.7-2.0) mmol/L Calcium (8.4-10.2) mg/dL Total Bilirubin (0.2-1.3) mg/dL AST (14-36) U/L ALT (9-52) U/L Alkaline Phosphatase (38-126) U/L Troponin I <0.012 (0.000-0.034) ng/mL Total Protein (6.3-8.2) g/dL Albumin (3.5-5.0) g/dL Urine Color Yellow Urine Appearance Clear (Clear) Urine pH 5.5 (5.0-8.0) Ur Specific [place] 1.018 (1.001-1.035) Urine Protein Negative (Negative) Urine Glucose (UA) Negative (Negative) Urine Ketones Negative (Negative) Urine Blood Negative (Negative) Urine Nitrite Positive H (Negative) Urine Bilirubin 3+ H (Negative) Urine Urobilinogen <2.0 (<2.0) mg/dL Ur Leukocyte Esterase Moderate H (Negative) Urine RBC <1 (0-5) /hpf Urine WBC 6 H (0-5) /hpf Ur Squamous Epith Cells 1 (0-4) /hpf Urine Bacteria Moderate H (None) /hpf Hyaline Casts 2 (0-2) /lpf Urine Mucus Rare H (None) /hpf Disposition Clinical Impression: Rib fractures, Urinary tract infection Disposition: HOME SELF-CARE Condition: Good Instructions (If sedation given, give patient instructions): Fall Prevention for Older Adults (ED), Urinary Tract Infection in Women (ED), Rib Fracture (ED) Prescriptions: Nitrofurantoin Monohyd/M-Cryst [Macrobid] 100 mg PO Q12HR #14 cap Is patient prescribed a controlled substance at d/c from ED?: No Referrals: German Joiner MD [Primary Care Provider] - 1-2 days Time of Disposition: 13:12
[2019-06-15 10:37] LABS: Basophils % (A) 0 %; Eosinophils # (A) 0.2 k/uL (0-0.7); Eosinophils % (A) 3 %; HCT 30.8 % (34.0-46.0); HGB 9.1 gm/dL (11.4-16.0); Hypochromasia Slight; Lymphocytes % (A) 17 %; MCH 26.9 pg (25.0-35.0); MCHC 29.7 g/dL (31.0-37.0); MCV 90.6 fL (80.0-100.0); Mean Platelet Volume 7.7; Monocytes # (A) 0.4 k/uL (0-1.0); Monocytes % (A) 7 %; Neutrophils # (A) 4.2 k/uL (1.3-7.7); Neutrophils % (A) 71 %; Platelet Count 274 k/uL (150-450); RDW 15.6 % (11.5-15.5)
[2019-06-15 10:47] LABS: Albumin 3.8 g/dL (3.5-5.0); Calcium 9.5 mg/dL (8.4-10.2); Total Bilirubin 0.6 mg/dL (0.2-1.3); Total Protein 7.7 g/dL (6.3-8.2)
[2019-06-15 10:49] LABS: INR 0.9 (<1.2); Partial Thromboplastin Time 22.3 sec (22.0-30.0)
[2019-06-15 11:00] LABS: Potassium 4.8 mmol/L (3.5-5.1)
--- NOTE | 2019-06-15 11:44 | XR ---
EXAMINATION TYPE: XR chest 2V DATE OF EXAM: 06/15/2019 COMPARISON: 03/30/2018 HISTORY: Weakness TECHNIQUE: Frontal and lateral views of the chest are obtained. FINDINGS: Again there is chronic increased density in caliber of the right paratracheal space. Thyro id goiter is possible is suggested on the prior exam, vascular ectasia, or vascular aneurysm. This is seen however dating back to 2016. Remainder the cardiomediastinal silhouette is also enlarged. Diffu se osseous demineralization and left rib fractures that appear acute to subacute are seen of ribs 4, 5, and 6 posteriorly. There is a partial intrathoracic stomach seen. Lungs are clear without evidence of focal consolidation, pleural effusion or pneumothorax. Vertebral body heights are difficult to de lineate given the diffuse osseous demineralization. If there is back pain MRI or CT would be recommen ded. IMPRESSION: 1. No acute cardiopulmonary process. 2. Acute to subacute fractures of ribs 4 through 6 on the left. 3. Partial intrathoracic stomach. 4. Chronic enlargement of the right paratracheal space dating back to 2016. Differential includes thy roid goiter, vascular ectasia, or vascular aneurysm.
--- NOTE | 2019-06-15 11:47 | XR ---
EXAMINATION TYPE: XR humerus bilateral DATE OF EXAM: 06/15/2019 CLINICAL HISTORY: Left arm pain TECHNIQUE: Two views of the bilateral humeri are obtained. COMPARISON: None. FINDINGS: There is diffuse osseous demineralization. There is no acute fracture or dislocation seen in either humerus. The bilateral shoulder and elbow joints appear aligned. There is moderate acromio clavicular arthropathy and glenohumeral arthropathy. Rib fractures of ribs 4 through 6 are better see n on the chest x-ray of the same date. These appear acute to subacute and overall nondisplaced. Addit ional bilateral fractures of ribs 8 and 9 are also seen. The overlying soft tissue appears within nor mal limits. Loose joint body is incidentally noted on the right in the glenohumeral joint. IMPRESSION: No acute fracture or dislocation is evident in the either humerus. Acute to subacute rib fractures of ribs 4 through 6 on the left and 8 and 9.
[2019-06-15 13:02] LABS: Appearance,Urine Clear (Clear); Bacteria,Urine Moderate /hpf; Bilirubin,Urine 3+ (Negative); Blood,Urine Negative (Negative); Color,Urine Yellow; Glucose,Urine (UA) Negative (Negative); Hyaline Casts,Urine 2 /lpf (0-2); Ketones,Urine Negative (Negative); Leukocyte Esterase,Urine Moderate (Negative); Mucus,Urine Rare /hpf; Nitrite,Urine Positive (Negative); PH, Urine 5.5 (5.0-8.0); Protein,Urine Negative (Negative); RBC,Urine <1 /hpf (0-5); Specific Gravity,Urine 1.018 (1.001-1.035); Squamous Epithelial Cell,Urine 1 /hpf (0-4); Urobilinogen,Urine <2.0 mg/dL (<2.0); WBC,Urine 6 /hpf (0-5)
[2019-06-15] MEDS ORDERED: cefTRIAXone IN SWFI 1,000 MG/10 ML SYRINGE IVP STA (13:10)
[2019-06-15 14:33] VITALS: BP 165/91; PULSE 80
== END 2019-06-15 14:31 | disposition home or self-care (01) ==
LOC: EC 08:51
DX: S22.42XA Multiple fractures of ribs, left side, initial encounter for closed fracture (principal); N39.0 Urinary tract infection, site not specified; J45.909 Unspecified asthma, uncomplicated; I10 Essential (primary) hypertension; K21.9 Gastro-esophageal reflux disease without esophagitis; M19.90 Unspecified osteoarthritis, unspecified site; E03.9 Hypothyroidism, unspecified; M81.0 Age-related osteoporosis without current pathological fracture; Z86.718 Personal history of other venous thrombosis and embolism; Z79.899 Other long term (current) drug therapy; Z88.8 Allergy status to other drugs, medicaments and biological substances; W06.XXXA Fall from bed, initial encounter
CPT/HCPCS: 36415; 71046; 80053; 81001; 83605; 84484; 85025; 85610; 85730; 93005; 96374; 99284

== ENCOUNTER 2020-08-18 10:12 | Inpatient (IN) | payer MEDICARE, BC ==
[2020-08-18] MEDS ORDERED: SODIUM CHLORIDE 0.9% 1,000 ML IV STA (12:26)
[2020-08-18] MEDS ORDERED: PANTOPRAZOLE 40 MG/10 ML VIAL IVP STA (12:26)
--- NOTE | 2020-08-18 12:36 | ED ---
General Adult HPI - General Chief complaint: GI Bleed Stated complaint: GI bleed Time Seen by Provider: 08/18/20 12:00 Source: patient, family, RN notes reviewed Mode of arrival: ambulatory Limitations: no limitations - History of Present Illness Initial comments: Patient is a pleasant 85-year-old female presenting to the emergency Department with complaints of coffee-ground emesis. Onset of sodium was yesterday. Patient vomited a couple times with black coffee-ground appearance. Patient is also had some dark stools. Patient has been somewhat fatigued and chilled. No abdominal pain. No history of similar symptoms previously. Patient is on E liquis. - Related Data Home Medications Medication Instructions Recorded Confirmed Levothyroxine Sodium [Synthroid] 25 mcg PO DAILY 03/27/14 06/15/19 Mirtazapine [Remeron] 45 mg PO HS 03/27/14 06/15/19 Benazepril/Hydrochlorothiazide 1 tab PO HS 10/19/16 06/15/19 [Benazepril-Hctz 20-25 mg Tab] Citalopram Hydrobromide [CeleXA] 20 mg PO DAILY 10/19/16 06/15/19 Pantoprazole Sodium [Protonix] 40 mg PO HS 10/19/16 06/15/19 Montelukast [Singulair] 10 mg PO DAILY 03/30/18 06/15/19 ALPRAZolam [Xanax] 0.25 mg PO TID PRN 06/15/19 06/15/19 Etodolac [Lodine] 400 mg PO DAILY 06/15/19 06/15/19 Previous Rx's Medication Instructions Recorded Nitrofurantoin Monohyd/M-Cryst 100 mg PO Q12HR #14 cap 06/15/19 [Macrobid] Allergies Allergy/AdvReac Type Severity Reaction Status Date / Time epinephrine AdvReac Rapid Verified 08/18/20 10:40 Heart Rate Review of Systems ROS Statement: Those systems with pertinent positive or pertinent negative responses have been documented in the HPI. ROS Other: All systems not noted in ROS Statement are negative. Constitutional: Denies: fever Eyes: Denies: eye pain ENT: Denies: ear pain Respiratory: Denies: cough, dyspnea Cardiovascular: Denies: chest pain Endocrine: Reports: fatigue Gastrointestinal: Reports: melena, other (Coffee-ground emesis). Denies: abdominal pain Genitourinary: Denies: dysuria Musculoskeletal: Denies: back pain Skin: Denies: rash Neurological: Denies: headache Past Medical History Past Medical History: Asthma, Deep Vein Thrombosis (DVT), GERD/Reflux, Hypertension, Osteoarthritis (OA), Pneumonia, Thyroid Disorder Additional Past Medical History / Comment(s): Bronchitis, sinus problems, R femoral vein DVT, arthritis multiple joints, osteoporosis, scoliosis, occasional back pain, multiple fractures, falls, double vision in r eye at times, ulcerative colitis once, hypothyriod, incontinent or urine at times. History of Any Multi-Drug Resistant Organisms: None Reported Past Surgical History: Appendectomy, Hysterectomy Additional Past Surgical History / Comment(s): thyroidectomy d/t goiter, orif right femur/ has pins, right tib/fib, right shoulder surgery twice, bilateral cataract surgery with lens implants, R eye strabismus surgery, epidural injections to back. Past Anesthesia/Blood Transfusion Reactions: No Reported Reaction Past Psychological History: No Psychological Hx Reported Smoking Status: Never smoker Past Alcohol Use History: None Reported Past Drug Use History: None Reported - Past Family History Father Family Medical History: Myocardial Infarction (AL) Additional Family Medical History / Comment(s): Father of a AL at the age of 78yrs. Mother Family Medical History: Thyroid Disorder Additional Family Medical History / Comment(s): arthritis General Exam Limitations: no limitations General appearance: alert, in no apparent distress, other (Evidence of dark black-appearing emesis on face.) Head exam: Present: normocephalic Eye exam: Present: normal appearance Neck exam: Present: normal inspection Respiratory exam: Present: normal lung sounds bilaterally Cardiovascular Exam: Present: irregular rhythm GI/Abdominal exam: Present: soft. Absent: tenderness Extremities exam: Present: normal inspection. Absent: pedal edema, calf tenderness Neurological exam: Present: alert Psychiatric exam: Present: normal affect, normal mood Skin exam: Present: normal color Course Vital Signs 08/18/20 08/18/20 10:35 13:15 Temperature 98.3 F Pulse Rate 83 75 Respiratory 18 18 Rate Blood Pressure 134/84 131/82 O2 Sat by Pulse 92 L 92 L Oximetry EKG Findings - EKG Comments: EKG Findings:: Sinus rhythm at 78. NC 184. QRS 96. QT 350. QTC 399. LVH criteria. Nonspecific T waves. Medical Decision Making - Medical Decision Making Patient reevaluated and resting comfortably in bed. Patient and family updated on results and plan. Case discussed with sound physician group who will admit covering for Dr. Joiner. - Lab Data Result diagrams: 08/18/20 13:15 08/18/20 13:16 Lab Results 08/18/20 08/18/20 08/18/20 Range/Units 13:15 13:15 13:16 WBC 14.8 H (3.8-10.6) k/uL RBC 3.29 L (3.80-5.40) m/uL Hgb 9.7 L (11.4-16.0) gm/dL Hct 30.5 L (34.0-46.0) % MCV 92.7 (80.0-100.0) fL MCH 29.4 (25.0-35.0) pg MCHC 31.7 (31.0-37.0) g/dL RDW 15.1 (11.5-15.5) % Plt Count 199 (150-450) k/uL Neutrophils % 89 % Lymphocytes % 5 % Monocytes % 5 % Eosinophils % 0 % Basophils % 0 % Neutrophils # 13.2 H (1.3-7.7) k/uL Lymphocytes # 0.7 L (1.0-4.8) k/uL Monocytes # 0.8 (0-1.0) k/uL Eosinophils # 0.0 (0-0.7) k/uL Basophils # 0.0 (0-0.2) k/uL PT 10.5 (9.0-12.0) sec INR 1.0 (<1.2) APTT 20.2 L (22.0-30.0) sec Sodium 140 (137-145) mmol/L Potassium 3.4 L (3.5-5.1) mmol/L Chloride 98 (98-107) mmol/L Carbon Dioxide 33 H (22-30) mmol/L Anion Gap 9 mmol/L BUN 34 H (7-17) mg/dL Creatinine 1.06 H (0.52-1.04) mg/dL Est GFR (CKD-EPI)AfAm 56 (>60 ml/min/1.73 sqM) Est GFR (CKD-EPI)NonAf 48 (>60 ml/min/1.73 sqM) Glucose 122 H (74-99) mg/dL Calcium 10.8 H (8.4-10.2) mg/dL Total Bilirubin 0.7 (0.2-1.3) mg/dL AST 20 (14-36) U/L ALT 9 (4-34) U/L Alkaline Phosphatase 65 (38-126) U/L Total Protein 8.1 (6.3-8.2) g/dL Albumin 3.9 (3.5-5.0) g/dL Stool Occult Blood (Negative) Blood Type Blood Type Recheck Bld Type Recheck Status Antibody Screen Spec Expiration Date 08/18/20 08/18/20 Range/Units 13:16 13:32 WBC (3.8-10.6) k/uL RBC (3.80-5.40) m/uL Hgb (11.4-16.0) gm/dL Hct (34.0-46.0) % MCV (80.0-100.0) fL MCH (25.0-35.0) pg MCHC (31.0-37.0) g/dL RDW (11.5-15.5) % Plt Count (150-450) k/uL Neutrophils % % Lymphocytes % % Monocytes % % Eosinophils % % Basophils % % Neutrophils # (1.3-7.7) k/uL Lymphocytes # (1.0-4.8) k/uL Monocytes # (0-1.0) k/uL Eosinophils # (0-0.7) k/uL Basophils # (0-0.2) k/uL PT (9.0-12.0) sec INR (<1.2) APTT (22.0-30.0) sec Sodium (137-145) mmol/L Potassium (3.5-5.1) mmol/L Chloride (98-107) mmol/L Carbon Dioxide (22-30) mmol/L Anion Gap mmol/L BUN (7-17) mg/dL Creatinine (0.52-1.04) mg/dL Est GFR (CKD-EPI)AfAm (>60 ml/min/1.73 sqM) Est GFR (CKD-EPI)NonAf (>60 ml/min/1.73 sqM) Glucose (74-99) mg/dL Calcium (8.4-10.2) mg/dL Total Bilirubin (0.2-1.3) mg/dL AST (14-36) U/L ALT (4-34) U/L Alkaline Phosphatase (38-126) U/L Total Protein (6.3-8.2) g/dL Albumin (3.5-5.0) g/dL Stool Occult Blood Positive H (Negative) Blood Type O Positive Blood Type Recheck O Pos Bld Type Recheck Status No Antibody Screen NEGATIVE Spec Expiration Date 08/21/2020 - 2315 Disposition Clinical Impression: GI hemorrhage Disposition: ADMITTED IP TO THIS HOSP Is patient prescribed a controlled substance at d/c from ED?: No Referrals: German Joiner MD [Primary Care Provider] - 1-2 days Decision Time: 14:38
[2020-08-18 13:23] LABS: Basophils % (A) 0 %; Eosinophils % (A) 0 %; HCT 30.5 % (34.0-46.0); HGB 9.7 gm/dL (11.4-16.0); Lymphocytes # (A) 0.7 k/uL (1.0-4.8); Lymphocytes % (A) 5 %; MCH 29.4 pg (25.0-35.0); MCHC 31.7 g/dL (31.0-37.0); MCV 92.7 fL (80.0-100.0); Mean Platelet Volume 8.1; Monocytes # (A) 0.8 k/uL (0-1.0); Monocytes % (A) 5 %; Neutrophils # (A) 13.2 k/uL (1.3-7.7); Neutrophils % (A) 89 %; Platelet Count 199 k/uL (150-450); RBC 3.29 m/uL (3.80-5.40); RDW 15.1 % (11.5-15.5); WBC 14.8 k/uL (3.8-10.6)
[2020-08-18 13:39] LABS: Albumin 3.9 g/dL (3.5-5.0); Calcium 10.8 mg/dL (8.4-10.2); Potassium 3.4 mmol/L (3.5-5.1); Total Bilirubin 0.7 mg/dL (0.2-1.3); Total Protein 8.1 g/dL (6.3-8.2)
[2020-08-18 13:47] LABS: Prothrombin Time 10.5 sec (9.0-12.0)
[2020-08-18 14:15] LABS: Partial Thromboplastin Time 20.2 sec (22.0-30.0)
[2020-08-18] MEDS ORDERED: NALOXONE 0.4 MG/ML 1 ML VIAL IV PRN (14:39)
[2020-08-18] MEDS ORDERED: ONDANSETRON 4 MG/2 ML VIAL IVP PRN (14:39)
[2020-08-18] MEDS: PANTOPRAZOLE 40 MG/10 ML VIAL IV SCH (15:49)
[2020-08-18] MEDS ORDERED: ALPRAZolam 0.25 MG TAB PO PRN (17:28)
[2020-08-18] MEDS ORDERED: ACETAMINOPHEN TAB 325 MG TAB PO PRN (17:29)
[2020-08-18] MEDS ORDERED: Potassium Replacement Protocol 1 EACH MISC MISCELLANE PRN (18:05)
--- NOTE | 2020-08-18 18:07 | P.HPIM ---
History of Present Illness H&P Date: 08/18/20 85-year-old female with PMH of hypertension, GERD, hypothyroidism presents to the ED for hematemesis and melena. is at bedside providing majority of the history. Patient states that since Tuesday she has not been eating well. reports that patient vomited red blood on Tuesday and Tuesday along with experiencing melanotic stools. This prompted them to come to the ED on Tuesday. Patient has no current complaints. She denies any abdominal pain. She denies any headache, lower extremity edema, nausea or vomiting, fever or chills, cough, chest pain, shortness of breath, palpitations, changes in urination. She denies any dizziness. She denies any numbness/weakness/tingling of the extremities. In the ED, her vital signs are stable. CBC showed leukocytosis of 14.8 and hem oglobin of 9.7. CMP showed potassium of 3.4, bicarb of 33, BUN 34, creatinine 1.06, glucose 122, calcium 10.8. Stool for occult blood was positive. Patient is admitted for GI bleed with gastroenterology on consult. Review of Systems Pertinent positives and negatives as discussed in HPI, a complete review of systems was performed and all other systems are negative. Past Medical History Past Medical History: Asthma, Deep Vein Thrombosis (DVT), GERD/Reflux, Hypertension, Osteoarthritis (OA), Pneumonia, Thyroid Disorder Additional Past Medical History / Comment(s): Bronchitis, sinus problems, R femoral vein DVT, arthritis multiple joints, osteoporosis, scoliosis, occasional back pain, multiple fractures, falls, double vision in r eye at times, ulcerative colitis once, hypothyriod, incontinent or urine at times. History of Any Multi-Drug Resistant Organisms: None Reported Past Surgical History: Appendectomy, Hysterectomy Additional Past Surgical History / Comment(s): thyroidectomy d/t goiter, orif right femur/ has pins, right tib/fib, right shoulder surgery twice, bilateral cataract surgery with lens implants, R eye strabismus surgery, epidural injections to back. Past Anesthesia/Blood Transfusion Reactions: No Reported Reaction Past Psychological History: No Psychological Hx Reported Smoking Status: Never smoker Past Alcohol Use History: None Reported Past Drug Use History: None Reported - Past Family History Father Family Medical History: Myocardial Infarction (NH) Additional Family Medical History / Comment(s): Father of a NH at the age of 78yrs. Mother Family Medical History: Thyroid Disorder Additional Family Medical History / Comment(s): arthritis Medications and Allergies Home Medications Medication Instructions Recorded Confirmed Type Levothyroxine Sodium [Synthroid] 25 mcg PO DAILY 03/27/14 08/18/20 History Mirtazapine [Remeron] 45 mg PO HS 03/27/14 08/18/20 History Benazepril/Hydrochlorothiazide 1 tab PO HS 10/19/16 08/18/20 History [Benazepril-Hctz 20-25 mg Tab] Citalopram Hydrobromide [CeleXA] 20 mg PO DAILY 10/19/16 08/18/20 History Pantoprazole Sodium [Protonix] 40 mg PO HS 10/19/16 08/18/20 History Montelukast [Singulair] 10 mg PO HS 03/30/18 08/18/20 History ALPRAZolam [Xanax] 0.25 mg PO BID 06/15/19 08/18/20 History Etodolac [Lodine] 400 mg PO DAILY 06/15/19 08/18/20 History HYDROcodone/APAP 10-325MG [[place] 1 tab PO QID@08,12,16,20 08/18/20 08/18/20 History 10-325] Allergies Allergy/AdvReac Type Severity Reaction Status Date / Time epinephrine AdvReac Rapid Verified 08/18/20 15:05 Heart Rate lidocaine AdvReac Rapid Verified 08/18/20 15:05 Heart Rate Physical Exam Vitals: Vital Signs Temp Pulse Resp BP Pulse Ox 08/18/20 16:00 97.9 F 82 18 149/89 92 L 08/18/20 13:15 75 18 131/82 92 L 08/18/20 10:35 98.3 F 83 18 134/84 92 L Intake and Output 08/18/20 08/18/20 08/18/20 06:59 14:59 22:59 Other: Weight 44.089 kg General: [non toxic], [no distress], [appears at stated age] Derm: [warm], [dry] Head: [atraumatic], [normocephalic], [symmetric] Eyes: [EOMI], [no lid lag], [anicteric sclera] Mouth: [no lip lesion], [mucus membranes moist] Cardiovascular: [S1S2 reg], [no murmur], [positive posterior tibial pulse bilateral], Lungs: [CTA bilateral], [no rhonchi, no rales] , [no accessory muscle use] Abdominal: [soft], [ nontender to palpation], [no guarding], [no appreciable organomegaly] Ext: [no gross muscle atrophy], [no edema], [no contractures] Neuro: [ CN II-XI grossly intact], [no focal neuro deficits] Psych: [Alert], [oriented], [appropriate affect] Results CBC & Chem 7: 08/18/20 13:15 08/18/20 13:16 Labs: Abnormal Lab Results - Last 24 Hours (Table) 08/18/20 08/18/20 08/18/20 Range/Units 13:15 13:15 13:16 WBC 14.8 H (3.8-10.6) k/uL RBC 3.29 L (3.80-5.40) m/uL Hgb 9.7 L (11.4-16.0) gm/dL Hct 30.5 L (34.0-46.0) % Neutrophils # 13.2 H (1.3-7.7) k/uL Lymphocytes # 0.7 L (1.0-4.8) k/uL APTT 20.2 L (22.0-30.0) sec Potassium 3.4 L (3.5-5.1) mmol/L Carbon Dioxide 33 H (22-30) mmol/L BUN 34 H (7-17) mg/dL Creatinine 1.06 H (0.52-1.04) mg/dL Glucose 122 H (74-99) mg/dL Calcium 10.8 H (8.4-10.2) mg/dL Stool Occult Blood (Negative) 08/18/20 Range/Units 13:32 WBC (3.8-10.6) k/uL RBC (3.80-5.40) m/uL Hgb (11.4-16.0) gm/dL Hct (34.0-46.0) % Neutrophils # (1.3-7.7) k/uL Lymphocytes # (1.0-4.8) k/uL APTT (22.0-30.0) sec Potassium (3.5-5.1) mmol/L Carbon Dioxide (22-30) mmol/L BUN (7-17) mg/dL Creatinine (0.52-1.04) mg/dL Glucose (74-99) mg/dL Calcium (8.4-10.2) mg/dL Stool Occult Blood Positive H (Negative) Assessment and Plan Assessment: Upper GI bleed Leukocytosis Hypokalemia Acute kidney injury Chronic conditions: Asthma, hypertension, hypothyroidism Patient presents with hematemesis and melanotic stools. She has no abdominal pain. Hemoglobin is 9.7. Plans: Trend CBC. Start Protonix IV daily. Telemetry monitoring. Transfuse if hemoglobin less than 7. Clear liquid diet. Follow GI recommendations. Likely reactive. No signs of infection. Plans: Continue to monitor. Repeat CBC tomorrow morning. Potassium 3.4. Plans: Replace via protocol. Repeat BMP tomorrow morning. Creatinine 1.06. Elevated BUN likely due to GI bleed. Plans: Avoid nephroto xins. Repeat BMP tomorrow morning. Restart Singulair for asthma. Restart hydrochlorothiazide and lisinopril for hypertension. Resume Synthroid for hypothyroidism. DVT prophylaxis: [SCD boots] Discussed with: [Patient and ] Anticipated discharge: [2-3 days] Anticipated discharge place: [Home] A total of [45] minutes was spent on the care of this complex patient more than 50% of the time was spent in counseling and care coordination. Patient names her Jules decision maker if she can't make decisions for herself. Patient would like to be full code.
[2020-08-18] MEDS: MIRTAZAPINE 45 MG TABLET PO SCH (19:58)
[2020-08-18] MEDS: lisinopriL 20 MG TAB PO SCH (19:58)
[2020-08-18] MEDS: hydroCHLOROthiazide 25 MG TAB PO SCH (19:58)
[2020-08-18] MEDS: MONTELUKAST 10 MG TAB PO SCH (19:58)
[2020-08-18] MEDS: HYDROcodone/APAP 10-325MG 1 EACH TAB PO SCH (19:59)
[2020-08-18] MEDS: SODIUM CHLORIDE 0.9% 1,000 ML IV SCH (20:09)
[2020-08-18 21:13] LABS: Basophils % (A) 0 %; Eosinophils # (A) 0.1 k/uL (0-0.7); Eosinophils % (A) 1 %; HCT 27.6 % (34.0-46.0); HGB 8.7 gm/dL (11.4-16.0); Hypochromasia Slight; Lymphocytes # (A) 0.9 k/uL (1.0-4.8); Lymphocytes % (A) 7 %; MCH 29.5 pg (25.0-35.0); MCHC 31.3 g/dL (31.0-37.0); MCV 94.1 fL (80.0-100.0); Mean Platelet Volume 7.9; Monocytes # (A) 0.8 k/uL (0-1.0); Monocytes % (A) 6 %; Neutrophils # (A) 11.1 k/uL (1.3-7.7); Neutrophils % (A) 86 %; Platelet Count 181 k/uL (150-450); RBC 2.94 m/uL (3.80-5.40); RDW 15.2 % (11.5-15.5)
[2020-08-19] MEDS: SODIUM CHLORIDE 0.9% 1,000 ML IV SCH ×2 (04:33→16:33)
[2020-08-19] MEDS: LEVOTHYROXINE 25 MCG TAB PO SCH (06:33)
[2020-08-19] MEDS: PANTOPRAZOLE 40 MG/10 ML VIAL IV SCH ×2 (07:50→21:44)
[2020-08-19] MEDS: HYDROcodone/APAP 10-325MG 1 EACH TAB PO SCH ×4 (07:51→21:42)
[2020-08-19] MEDS: CITALOPRAM HYDROBROMIDE 20 MG TAB PO SCH (07:51)
[2020-08-19 08:45] LABS: Basophils % (A) 0 %; Eosinophils # (A) 0.1 k/uL (0-0.7); Eosinophils % (A) 1 %; HCT 25.7 % (34.0-46.0); HGB 8.1 gm/dL (11.4-16.0); Hypochromasia Slight; Lymphocytes # (A) 1.1 k/uL (1.0-4.8); Lymphocytes % (A) 12 %; MCH 29.8 pg (25.0-35.0); MCHC 31.5 g/dL (31.0-37.0); MCV 94.6 fL (80.0-100.0); Mean Platelet Volume 8.2; Monocytes # (A) 0.5 k/uL (0-1.0); Monocytes % (A) 6 %; Neutrophils # (A) 6.9 k/uL (1.3-7.7); Neutrophils % (A) 79 %; Platelet Count 168 k/uL (150-450); RBC 2.72 m/uL (3.80-5.40); WBC 8.7 k/uL (3.8-10.6)
[2020-08-19 09:13] LABS: Potassium 3.2 mmol/L (3.5-5.1)
[2020-08-19 09:44] LABS: Reticulocyte % 1.8 % (0.5-2.0)
[2020-08-19 11:14] VITALS: BMI 21.3
[2020-08-19] MEDS: POTASSIUM CHLORIDE 10 MEQ in WATER FOR INJECTION 1 100ML.BAG IVPB SCH ×4 (13:17→16:30)
[2020-08-19 16:54] LABS: Ferritin 57.9 ng/mL (10.0-291.0)
[2020-08-19 17:22] LABS: % Iron Saturation 8.06 (12.00-45.00)
--- NOTE | 2020-08-19 19:52 | P.PN ---
Subjective Progress Note Date: 08/19/20 (delayed charting seen at 1245) Principal diagnosis: GI bleed Patient is an 85-year-old female with past medical history of hypertension, GERD, hypothyroidism who presented to the ER for hematemesis and melena. Patient seen and examined at bedside. No episodes of vomiting or diarrhea overnight. No abdominal pain. Reports feeling tired. No chest pain or shortness of breath. at bedside and updated on plan of care. General: non toxic, no distress, appears at stated age Derm: warm, dry Head: atraumatic, normocephalic, symmetric Eyes: EOMI, no lid lag, anicteric sclera Mouth: no lip lesion, mucus membranes moist Cardiovascular: S1S2 reg, no murmur, positive posterior tibial pulse bilateral, Lungs: CTA bilateral, no rhonchi, no rales , no accessory muscle use Abdominal: soft, nontender to palpation, no guarding, no appreciable organomegaly Ext: no gross muscle atrophy, no edema, no contractures Neuro: CN II-XI grossly intact, no focal neuro deficits Psych: Alert, oriented, appropriate affect Acute blood loss anemia likely secondary to upper GI bleed -Continue with IV Protonix -Follow CBC -Nothing by mouth after midnight -Plan is for scope in a.m. -Patient does take [place] daily which will be held likely will need to avoid NSAIDs in the future Asthma without exacerbation -Continue with Singulair Hypertension, controlled -Continue with Bentyl pro-hydrochlorothiazide Hypothyroidism -Continue with Synthroid Chronic kidney disease stage III -Appears at baseline -Follow creatinine closely -Avoid nephrotoxic agents Hypokalemia -Replace -Recheck in a.m. Acute kidney injury ruled out with baseline creatinine approximately 1.23-1.4 Leukocytosis, resolved Objective - Vital Signs Vital signs: Vital Signs Temp 97.1 F L 08/19/20 17:20 Pulse 89 08/19/20 17:20 Resp 18 08/19/20 17:20 BP 117/65 08/19/20 17:20 Pulse Ox 100 08/19/20 17:20 Intake & Output 08/19/20 08/19/20 08/20/20 06:59 18:59 06:59 Intake Total 600 2375 Balance 600 2375 Weight 48 kg 48 kg Intake: Intake, IV Titration 600 1300 Amount Potassium Chloride 10 meq 400 In Water For Injection 1 100ml.bag @ 100 mls/hr IVPB Q1HR [facility] Rx#: [id number] Sodium Chloride 0.9% 1, 600 900 000 ml @ 75 mls/hr IV . [id number] [facility] Rx#:[id number] Oral 1075 Other: Voiding Method Toilet Diaper Incontinent # Voids 1 # Bowel Movements 1 - Labs CBC & Chem 7: 08/19/20 08:02 08/19/20 08:02 Labs: Abnormal Lab Results - Last 24 Hours (Table) 08/18/20 08/19/20 08/19/20 Range/Units 21:00 08:02 08:02 WBC 13.0 H (3.8-10.6) k/uL RBC 2.94 L 2.72 L (3.80-5.40) m/uL Hgb 8.7 L 8.1 L (11.4-16.0) gm/dL Hct 27.6 L 25.7 L (34.0-46.0) % Neutrophils # 11.1 H (1.3-7.7) k/uL Lymphocytes # 0.9 L (1.0-4.8) k/uL Potassium 3.2 L (3.5-5.1) mmol/L Carbon Dioxide 32 H (22-30) mmol/L BUN 28 H (7-17) mg/dL Creatinine 1.17 H (0.52-1.04) mg/dL Iron (50-170) ug/dL % Saturation (12.00-45.00) 08/19/20 Range/Units 08:02 WBC (3.8-10.6) k/uL RBC (3.80-5.40) m/uL Hgb (11.4-16.0) gm/dL Hct (34.0-46.0) % Neutrophils # (1.3-7.7) k/uL Lymphocytes # (1.0-4.8) k/uL Potassium (3.5-5.1) mmol/L Carbon Dioxide (22-30) mmol/L BUN (7-17) mg/dL Creatinine (0.52-1.04) mg/dL Iron 20 L (50-170) ug/dL % Saturation 8.06 L (12.00-45.00)
[2020-08-19] MEDS: lisinopriL 20 MG TAB PO SCH (21:43)
[2020-08-19] MEDS: hydroCHLOROthiazide 25 MG TAB PO SCH (21:43)
[2020-08-19] MEDS: MONTELUKAST 10 MG TAB PO SCH (21:43)
[2020-08-19] MEDS: MIRTAZAPINE 45 MG TABLET PO SCH (21:44)
[2020-08-20 05:35] LABS: Basophils % (A) 0 %; Eosinophils # (A) 0.3 k/uL (0-0.7); Eosinophils % (A) 4 %; HCT 27.3 % (34.0-46.0); HGB 8.2 gm/dL (11.4-16.0); Hypochromasia Marked; Lymphocytes # (A) 1.4 k/uL (1.0-4.8); Lymphocytes % (A) 23 %; MCH 29.2 pg (25.0-35.0); MCV 97.5 fL (80.0-100.0); Mean Platelet Volume 8.8; Monocytes # (A) 0.6 k/uL (0-1.0); Monocytes % (A) 10 %; Neutrophils # (A) 3.8 k/uL (1.3-7.7); Neutrophils % (A) 61 %; Platelet Count 163 k/uL (150-450); WBC 6.3 k/uL (3.8-10.6)
[2020-08-20 05:37] LABS: Calcium 9.2 mg/dL (8.4-10.2); Potassium 3.2 mmol/L (3.5-5.1)
[2020-08-20] MEDS: LEVOTHYROXINE 25 MCG TAB PO SCH (06:06)
--- NOTE | 2020-08-20 06:41 | CONS ---
CONSULTATION DATE OF DICTATION: August 19, 2020. REQUESTING PHYSICIAN: Dr. German Joiner REASON FOR CONSULTATION: Coffee-ground emesis. HISTORY OF PRESENT ILLNESS: The patient is an 85-year-old pleasant white female with history of hypertension, hyperlipidemia, hypothyroidism, who was brought to the emergency room by her after she had 2 episodes of coffee-ground emesis and black tarry stools. Symptoms started about 2 days ago. She denies any associated abdominal pain. She denies any recent NSAID use. No prior history of peptic ulcer disease. In the emergency room, she was noted to have a hemoglobin of 9.7 g/dL. Since being in the hospital, she did not have any further episodes of coffee-ground emesis. She had a repeat CBC done this morning. Hemoglobin dropped to 8.1 g/dL. PAST MEDICAL HISTORY: Significant for hypertension, gastroesophageal reflux disease, degenerative joint disease, anxiety, hypothyroidism, depression. MEDICATIONS: Medications at home include [place] p.r.n., Protonix, Singulair, Demerol, Etodolac, Celexa, Benazepril, Flomax and Synthroid. ALLERGIES: EPINEPHRINE. LIDOCAINE. SOCIAL HISTORY: No smoking. No alcohol use. PAST SURGICAL HISTORY: Bilateral cataract surgery, thyroidectomy, ORIF of the right femur, right shoulder repair. FAMILY HISTORY: Father had coronary artery disease. Mother had thyroid disorder. REVIEW OF SYSTEMS: CARDIOPULMONARY: She denies any chest pain, no shortness of breath. : No dysuria or hematuria. MUSCULOSKELETAL unremarkable. SKIN unremarkable. ENDOCRINE unremarkable. PSYCHIATRIC: Mild anxiety. ENT: Vision unremarkable. CONSTITUTIONAL: No recent weight loss. No fever, chills, night sweats. HEMATOLOGY: Severe anemia. ENDOCRINE unremarkable. PHYSICAL EXAMINATION: She appears comfortable. No apparent distress. Vital signs are stable. Blood pressure is 133/65, pulse rate 89, temperature 97.1. HEENT examination unremarkable. Conjunctivae pink. Sclerae anicteric. Oral cavity no lesions. NECK no JVD or lymph node enlargement. CHEST was clear to auscultation. HEART: Regular rate and rhythm. ABDOMEN: Soft. Bowel sounds are positive. Nontender, nondistended. EXTREMITIES: No pedal edema. SKIN no rashes. NEUROLOGIC: Alert and oriented x3. No focal deficits. LABS: WBC 7, hemoglobin 8.1, platelets normal. Basic metabolic panel is within normal limits. BUN 28, creatinine 1.17. Yesterday, BUN was 34, creatinine 1.06, TIBC 248, iron saturation 8.6, and ferritin 57. Stool occult blood was positive. IMPRESSION: 1. Acute upper gastrointestinal bleed with drop in hemoglobin from 9.7-8.1 g/dL. Clinically hemodynamically stable. She did have black tarry stools and two episodes of coffee ground emesis at home. Presently on Protonix 40 mg daily, doing well. Has been taking Etodolac for arthritis, possibly dealing with peptic ulcer disease. 2. History of hypertension. 3. Degenerative joint disease. 4. Anxiety and depression. RECOMMENDATION: 1. Continue with Protonix 40 mg twice daily. 2. Clear liquid diet. 3. Proceed with an upper endoscopy tomorrow. Risks, benefits and complications explained. 4. Repeat CBC in the morning. 5. We will follow with you closely. Thank you for this consultation. MMKENROYL / IJN: [id number] /
[2020-08-20] MEDS: LACTATED RINGERS 1,000 ML IV SCH (07:22)
[2020-08-20] MEDS: PANTOPRAZOLE 40 MG/10 ML VIAL IV SCH ×2 (08:53→20:32)
[2020-08-20] MEDS: HYDROcodone/APAP 10-325MG 1 EACH TAB PO SCH ×4 (08:55→20:39)
[2020-08-20] MEDS: CITALOPRAM HYDROBROMIDE 20 MG TAB PO SCH (08:55)
[2020-08-20] MEDS: SODIUM CHLORIDE 0.9% 1,000 ML IV SCH ×3 (08:56→21:49)
--- NOTE | 2020-08-20 10:45 | P.PN ---
Subjective Progress Note Date: 08/20/20 Principal diagnosis: GI bleed Patient is an 85-year-old female with past medical history of hypertension, GERD, hypothyroidism who presented to the ER for hematemesis and melena. She underwent evaluation initial vital signs were stable hemoglobin 9.7, white blood cell count 14.9, potassium 3.4, carbon dioxide 33, BUN 34, creatinine 1.06, calcium was mildly elevated at 10.8. Fecal occult blood was positive. She was admitted for gastrointestinal bleeding. She has pain and no, PPI was started, and gastroenterology was consulted. On the morning after admission her hemoglob in was down by 1 g. She did not have any more nausea vomiting or dark stools. GI plan on EGD. Currently appears confused and is refusing EGD. Believes that we are just out to get her insurance money and that she does not know any of us. I tried to explain that she came to the hospital for help due to bleeding and has not been bleeding today, but needs a scope to find out where she was bleeding from. She still refuses. Attempted to her at 2 different number without answer. Patient seen and examined at bedside. confused, upset and argumentative. Denies, nausea, vomiting, and abdominal. States she doesn't know whats wrong with us. General: non toxic, no distress, appears at stated age Derm: warm, dry Head: atraumatic, normocephalic, symmetric Eyes: EOMI, no lid lag, anicteric sclera Mouth: no lip lesion, mucus membranes moist Cardiovascular: S1S2 reg, no murmur, positive posterior tibial pulse bilateral, Lungs: CTA bilateral, no rhonchi, no rales , no accessory muscle use Abdominal: soft, nontender to palpation, no guarding, no appreciable organomegaly Ext: no gross muscle atrophy, no edema, no contractures Neuro: CN II-XI grossly intact, no focal neuro deficits Psych: Awake, alert to self and hospital, but appears confused about plan of care. Acute blood loss anemia likely secondary to upper GI bleed -Continue with IV Protonix -Follow CBC -Nothing by mouth after midnight -Plan is for scope today, if patient is agreeable. -Patient does take [place] daily which will be held likely will need to avoid NSAIDs in the future Asthma without exacerbation -Continue with Singulair Hypertension, controlled -Continue with Bentyl pro-hydrochlorothiazide Hypothyroidism -Continue with Synthroid Chronic kidney disease stage III -Appears at baseline -Follow creatinine closely -Avoid nephrotoxic agents Hypokalemia -Replace -Recheck in a.m. - give magnesium and check in AM Acute kidney injury ruled out with baseline creatinine approximately 1.23-1.4 Leukocytosis, resolved DVT prophylaxis: SCDs Discussed with: patient, attempted to call Anticipated discharge: in 1-[address]: home vs SNF A total of 25 minutes was spent on the care of this complex patient more than 50% of the time was spent in counseling and care coordination. Objective - Vital Signs Vital signs: Vital Signs Temp 98.2 F 08/20/20 04:55 Pulse 70 08/20/20 04:55 Resp 16 08/20/20 04:55 BP 145/79 08/20/20 04:55 Pulse Ox 91 L 08/20/20 04:55 Intake & Output 08/19/20 08/20/20 08/20/20 18:59 06:59 18:59 Intake Total 2375 Balance 2375 Weight 48 kg Intake: Intake, IV Titration 1300 Amount Potassium Chloride 10 meq 400 In Water For Injection 1 100ml.bag @ 100 mls/hr IVPB Q1HR [facility] Rx#: [id number] Sodium Chloride 0.9% 1, 900 000 ml @ 75 mls/hr IV . [id number] [facility] Rx#:[id number] Oral 1075 Other: Voiding Method Toilet Toilet Toilet Diaper Diaper Diaper Incontinent Incontinent Incontinent # Voids 1 1 # Bowel Movements 1 - Labs CBC & Chem 7: 08/20/20 04:47 08/20/20 04:47 Labs: Abnormal Lab Results - Last 24 Hours (Table) 08/19/20 08/20/20 08/20/20 Range/Units 08:02 04:47 04:47 RBC 2.80 L (3.80-5.40) m/uL Hgb 8.2 L (11.4-16.0) gm/dL Hct 27.3 L (34.0-46.0) % MCHC 30.0 L (31.0-37.0) g/dL Sodium 135 L (137-145) mmol/L Potassium 3.2 L (3.5-5.1) mmol/L BUN 23 H (7-17) mg/dL Iron 20 L (50-170) ug/dL % Saturation 8.06 L (12.00-45.00)
[2020-08-20] MEDS: MAGNESIUM SULFATE-D5W PMX 1 GM in DEXTROSE/WATER 1 100ML.BAG IVPB SCH ×2 (11:39→14:21)
[2020-08-20] MEDS: POTASSIUM CHLORIDE 10 MEQ in WATER FOR INJECTION 1 100ML.BAG IVPB SCH ×4 (11:39→17:55)
[2020-08-20] MEDS ORDERED: PROPOFOL 10 MG/ML 20 ML VIAL IV ONE (13:37)
[2020-08-20] MEDS ORDERED: IV FLUID CONTINUATION 1,000 ML IV ONE (13:41)
--- NOTE | 2020-08-20 13:51 | P.PCN ---
Date of Procedure: 08/20/20 Procedure(s) Performed: BRIEF HISTORY: Patient is a 85-year-old, pleasant,.scheduled for an upper endoscopy as a part of evaluation of coffee-ground emesis and black tarry stools for the last 2 days' duration. Last hemoglobin was 8 g/dL. PROCEDURE PERFORMED: Esophagogastroduodenoscopy. PREOPERATIVE DIAGNOSIS: Acute upper GI bleed. IV sedation per anesthesia. PROCEDURE: After informed consent was obtained, the patient was brought into the endoscopy unit. IV sedation was administered by Anesthesia under continuous monitoring. Initially the Olympus GIF-140 video endoscope was inserted into the mouth. Esophagus intubated without any difficulty. It was gradually advanced into the stomach and duodenum and carefully examined. The bulb and the second part of the duodenum appeared normal. The scope at this time was withdrawn to the stomach, adequately insufflated with air, and upon careful examination, mucosa of the antrum, body, cardia and the fundus appeared normal. The scope was then withdrawn into the esophagus. The GE junction was located at 31 cm from the incisors. It was a moderate size hiatal hernia noted. In the mid and distal esophagus there were circumferential ulcerations with exudates consistent with LA grade D reflux esophagitis. The esophagus appeared normal. There were no erosions or ulcerations seen and the patient tolerated the procedure well. IMPRESSION: 1. Severe circumferential ulceration exudates noted in the distal esophagus consistent with LA grade D reflux esophagitis. 2. Moderate size hiatal hernia . RECOMMENDATIONS: The findings of this examination were discussed with the patient as well as a family. She'll be continued on Protonix 40 mg twice daily and follow antireflux measures. Diet will be advanced as tolerated..
[2020-08-20] MEDS: hydroCHLOROthiazide 25 MG TAB PO SCH (20:33)
[2020-08-20] MEDS: MONTELUKAST 10 MG TAB PO SCH (20:33)
[2020-08-20] MEDS: lisinopriL 20 MG TAB PO SCH (20:34)
[2020-08-20] MEDS: MIRTAZAPINE 45 MG TABLET PO SCH (21:49)
[2020-08-21] MEDS ORDERED: NALOXONE 0.4 MG/ML 1 ML VIAL IV PRN ×2 (02:07)
[2020-08-21] MEDS: LACTATED RINGERS 1,000 ML IV SCH (03:53)
[2020-08-21] MEDS: LEVOTHYROXINE 25 MCG TAB PO SCH (06:04)
[2020-08-21 06:47] LABS: Basophils % (A) 0 %; Eosinophils # (A) 0.5 k/uL (0-0.7); Eosinophils % (A) 9 %; HCT 25.4 % (34.0-46.0); Hypochromasia Slight; Lymphocytes # (A) 1.2 k/uL (1.0-4.8); Lymphocytes % (A) 20 %; MCH 29.5 pg (25.0-35.0); MCHC 31.6 g/dL (31.0-37.0); MCV 93.4 fL (80.0-100.0); Mean Platelet Volume 8.1; Monocytes # (A) 0.5 k/uL (0-1.0); Monocytes % (A) 8 %; Neutrophils # (A) 3.7 k/uL (1.3-7.7); Neutrophils % (A) 60 %; Platelet Count 177 k/uL (150-450); RBC 2.72 m/uL (3.80-5.40); RDW 14.9 % (11.5-15.5); WBC 6.2 k/uL (3.8-10.6)
[2020-08-21] MEDS ORDERED: BENZOCAINE/MENTHOL LOZENG 1 EACH LOZENGE MUCOUS MEM PRN (08:59)
[2020-08-21] MEDS: HYDROcodone/APAP 10-325MG 1 EACH TAB PO SCH ×3 (09:47→16:30)
[2020-08-21] MEDS: CITALOPRAM HYDROBROMIDE 20 MG TAB PO SCH (09:49)
[2020-08-21] MEDS: SODIUM CHLORIDE 0.9% 1,000 ML IV SCH (09:49)
[2020-08-21] MEDS: PANTOPRAZOLE 40 MG/10 ML VIAL IV SCH (09:49)
--- NOTE | 2020-08-21 09:57 | P.DS ---
Providers Date of admission: 08/18/20 14:39 Expected date of discharge: 08/21/20 Attending physician: Gerald Bustos MD Consults: 08/18/20 14:39 Consult Physician Urgent Consulting Provider: Linda Richter Consult Reason/Comments: gi hemorrhage Do you want consulting provider notified?: Yes Primary care physician: German Joiner Hospital Course: Discharge Diagnosis: Acute blood loss anemia due to GI bleed Iron Deficiency anemia Grade D Esophagitis HTN Hypothyroidism CKD III Hypokalemia Acute kidney injury ruled out with baseline creatinine approximately 1.23-1.4 Leukocytosis, resolved Hospital Course: Patient is an 85-year-old female with past medical history of hypertension, GERD, hypothyroidism who presented to the ER for hematemesis and melena. She underwent evaluation initial vital signs were stable hemoglobin 9.7, white blood cell count 14.9, potassium 3.4, carbon dioxide 33, BUN 34, creatinine 1.06, calc ium was mildly elevated at 10.8. Fecal occult blood was positive. She was admitted for gastrointestinal bleeding. She was started on IV fluids, PPI was started, and gastroenterology was consulted. On the morning after admission her hemoglobin was down by 1 g. She did not have any more nausea vomiting or dark stool. She underwent EGD on 08/20 which showed Severe circumferential ulceration in distal esophagus associed consistnet with LD Grade D reflux esophagitis. Moderate hiatal hernia. She will continue on oral PPI twice daily. Her hemoglobin was stable and she was tolerating a diet. She was determined stable for discharge home. She will also take ferrous sulfate once daily. Patient seen and examined at bedside. No chest pain, SOB, having some throat pain and acid reflux. Vital signs reviewed and stable. General: non toxic, no distress, appears at stated age Derm: warm, dry Head: atraumatic, normocephalic, symmetric Eyes: EOMI, no lid lag, anicteric sclera Mouth: no lip lesion, mucus membranes moist Cardiovascular: S1S2 reg, no murmur, positive posterior tibial pulse bilateral, Lungs: Decreased bs bilateral, no rhonchi, no rales , no accessory muscle use Abdominal: soft, nontender to palpation, no guarding, no appreciable organomegaly Ext: no gross muscle atrophy, no edema, no contractures Neuro: CN II-XI grossly intact, no focal neuro deficits Psych: Alert, oriented, appropriate affect A total of 35 minutes of time were spent preparing this complex discharge summary . Patient Condition at Discharge: Stable Plan - Discharge Summary Discharge Rx Participant: No New Discharge Prescriptions: New Pantoprazole [Protonix] 40 mg PO BID #60 tablet. Ferrous Sulfate [Feosol] 325 mg PO DAILY #30 tab Continue Levothyroxine Sodium [Synthroid] 25 mcg PO DAILY Mirtazapine [Remeron] 45 mg PO HS Citalopram Hydrobromide [CeleXA] 20 mg PO DAILY Benazepril/Hydrochlorothiazide [Benazepril-Hctz 20-25 mg Tab] 1 tab PO HS Montelukast [Singulair] 10 mg PO HS ALPRAZolam [Xanax] 0.25 mg PO BID HYDROcodone/APAP 10-325MG [[place] 10-325] 1 tab PO QID@08,12,16,20 Discontinued Pantoprazole Sodium [Protonix] 40 mg PO HS Etodolac [Lodine] 400 mg PO DAILY Discharge Medication List Levothyroxine Sodium [Synthroid] 25 mcg PO DAILY 03/27/14 [History] Mirtazapine [Remeron] 45 mg PO HS 03/27/14 [History] Benazepril/Hydrochlorothiazide [Benazepril-Hctz 20-25 mg Tab] 1 tab PO HS 10/19 [History] Citalopram Hydrobromide [CeleXA] 20 mg PO DAILY 10/19/16 [History] Montelukast [Singulair] 10 mg PO HS 03/30/18 [History] ALPRAZolam [Xanax] 0.25 mg PO BID 06/15/19 [History] HYDROcodone/APAP 10-325MG [[place] 10-325] 1 tab PO QID@08,12,16,20 08/18/20 [History] Ferrous Sulfate [Feosol] 325 mg PO DAILY #30 tab 08/21/20 [Rx] Pantoprazole [Protonix] 40 mg PO BID #60 tablet. 08/21/20 [Rx] Follow up Appointment(s)/Referral(s): German Joiner MD [Primary Care Provider] - 1-2 days Linda Richter MD [STAFF PHYSICIAN] - 4 Weeks Activity/Diet/Wound Care/Special Instructions: Activity: as tolerated Diet: regular Discharge Disposition: HOME SELF-CARE
[2020-08-21 10:12] LABS: African American GFR (CKD) 67.6 (60.0-200.0); Anion Gap 4.7 mmol/L (4.00-12.00); BUN/Creat Ratio 16.67 Ratio (12.00-20.00); Calcium 8.6 mg/dL (8.7-10.3); Carbon Dioxide 29.3 mmol/L (21.6-31.8); Magnesium 1.8 mg/dL (1.5-2.4); Non-African American GFR(CKD) 58.3 (60.0-200.0); Phosphorus 2.5 mg/dL (2.4-5.1); Potassium 3.6 mmol/L (3.5-5.5)
[2020-08-21 11:48] VITALS: BP 111/71; PULSE 76; RESP 15; TEMP 97.9
--- NOTE | 2020-08-21 16:14 | P.PN ---
Subjective Progress Note Date: 08/21/20 Principal diagnosis: Coffee-ground emesis This is a pleasant 85-year-old white female patient who had come in with complaints of 2 episodes of coffee-ground emesis and black tarry stools. The symptoms started 2 days prior to coming into the emergency department. She underwent an upper endoscopy yesterday with Dr. Richter findings that included severe circum-torrential ulceration exudates noted in the distal esophagus consistent with L a grade D reflux esophagitis, and a mild sized hiatal hernia. He is recommended to continue on Protonix 40 mg twice daily and follow anti-r eflex measures. The patient was seen and evaluated at the bedside. She denies any further coffee-ground emesis, denies any nausea or vomiting. She denies any black tarry stools or abdominal pain. She states she does have some soreness in her throat. Cepacol lozenges have been ordered. Objective - Vital Signs Vital signs: Vital Signs Temp 97.9 F 08/21/20 11:47 Pulse 76 08/21/20 11:47 Resp 15 08/21/20 11:47 BP 111/71 08/21/20 11:47 Pulse Ox 93 L 08/21/20 11:47 Intake & Output 08/20/20 08/21/20 08/21/20 18:59 06:59 18:59 Intake Total 700 305 Output Total 0 0 Balance 700 305 0 Intake: IV 50 Intake, IV Titration 650 305 Amount Magnesium Sulfate-D5w Pmx 100 1 gm In Dextrose/Water 1 100ml.bag @ 100 mls/hr IVPB Q1H [facility] Rx#: [id number] Potassium Chloride 10 meq 100 In Water For Injection 1 100ml.bag @ 100 mls/hr IVPB Q1HR [facility] Rx#: [id number] Sodium Chloride 0.9% 1, 450 305 000 ml @ 75 mls/hr IV . [id number] [facility] Rx#:[id number] Output: Stool 0 0 Other: Voiding Method Toilet Toilet Toilet Diaper Diaper Diaper Incontinent Incontinent Incontinent # Voids 0 2 - Exam General appearance: The patient is alert, oriented, in no acute distress. HET: Head is normocephalic and atraumatic. Conjunctiva pink. Sclera anicteric Neck: Supple without lymphadenopathy. Trachea midline. No sores or lesions seen in the oral cavity. Abdomen: Soft, nontender, nondistended with bowel sounds. Extremities: Normal skin color and turgor. No pedal edema Neurological: No focal deficits. Alert and oriented. - Labs CBC & Chem 7: 08/21/20 06:15 08/21/20 06:15 Labs: Abnormal Lab Results - Last 24 Hours (Table) 08/21/20 08/21/20 Range/Units 06:15 06:15 RBC 2.72 L (3.80-5.40) m/uL Hgb 8.0 L (11.4-16.0) gm/dL Hct 25.4 L (34.0-46.0) % Est GFR (CKD-EPI)NonAf 58.3 L (60.0-200.0) Calcium 8.6 L (8.7-10.3) mg/dL Assessment and Plan Assessment: 1. Acute upper gastrointestinal bleed with drop in hemoglobin from 9.7-8.1. Clinically hemodynamically stable. She did have black tarry stools and 2 episodes of coffee-ground emesis at home. Presently on Protonix 40 mg twice daily and is status post upper endoscopy. The patient had been taking Etodolac for arthritis area 2. History of hypertension 3. Degenerative joint disease 4. Anxiety and depression Plan: 1. Continue Protonix 40 mg twice daily 2. Advance diet as tolerated 3. Patient is status post upper endoscopy 4. Repeat CBC in the morning 5. We will continue to follow the patient closely 6. Patient advised to follow-up outpatient for biopsy results. The impression and plan of care has been dictated as directed. Dr. Ahmet Richter I performed a history and examination of this patient, discussed the same with the dictator. I agree with the dictator's note ,documented as a scribe. Any additional findings or plans will be noted.
== END 2020-08-21 18:16 | disposition home or self-care (01) | DRG 381 ==
LOC: EC 10:12 → 3SCARD 14:39 → 6NMEDSUR 08-19 21:13
PROVIDERS: ADMIT Family Medicine; ATTEND Family Medicine
PROC: 0DJ08ZZ Inspection of Upper Intestinal Tract, Via Natural or Artificial Opening Endoscopic (ICD-10-PCS; principal; 2020-08-20 11:45)
DX: K22.11 Ulcer of esophagus with bleeding (principal); D62 Acute posthemorrhagic anemia; K51.90 Ulcerative colitis, unspecified, without complications; N18.30 Chronic kidney disease, stage 3 unspecified; I12.9 Hypertensive chronic kidney disease with stage 1 through stage 4 chronic kidney disease, or unspecified chronic kidney disease; K21.00 Gastro-esophageal reflux disease with esophagitis, without bleeding; K44.9 Diaphragmatic hernia without obstruction or gangrene; E87.6 Hypokalemia; E89.0 Postprocedural hypothyroidism; M41.9 Scoliosis, unspecified; E78.5 Hyperlipidemia, unspecified; M81.0 Age-related osteoporosis without current pathological fracture; F32.9 Major depressive disorder, single episode, unspecified; F41.9 Anxiety disorder, unspecified; J45.909 Unspecified asthma, uncomplicated; R32 Unspecified urinary incontinence; D72.829 Elevated white blood cell count, unspecified; M54.9 Dorsalgia, unspecified; H53.2 Diplopia; M19.90 Unspecified osteoarthritis, unspecified site; Z79.890 Hormone replacement therapy; Z79.891 Long term (current) use of opiate analgesic; Z79.899 Other long term (current) drug therapy; Z86.718 Personal history of other venous thrombosis and embolism; Z87.01 Personal history of pneumonia (recurrent); Z87.81 Personal history of (healed) traumatic fracture; Z96.1 Presence of intraocular lens; Z98.41 Cataract extraction status, right eye; Z90.710 Acquired absence of both cervix and uterus; Z98.42 Cataract extraction status, left eye; Z87.42 Personal history of other diseases of the female genital tract; Z90.49 Acquired absence of other specified parts of digestive tract; Z87.39 Personal history of other diseases of the musculoskeletal system and connective tissue; Z87.19 Personal history of other diseases of the digestive system; Z98.890 Other specified postprocedural states; Z88.8 Allergy status to other drugs, medicaments and biological substances; Z82.49 Family history of ischemic heart disease and other diseases of the circulatory system; Z83.49 Family history of other endocrine, nutritional and metabolic diseases
CPT/HCPCS: 36415; 43235; 80048; 80053; 82272; 82607; 82728; 82746; 83540; 83550; 83735; 84100; 85025; 85045; 85610; 85730; 86850; 86900; 86901; 93005; 96361; 96374; 99285

== ENCOUNTER 2022-07-29 12:09 | Inpatient (IN) | payer MEDICARE, BC ==
[2022-07-29 12:50] LABS: Basophils % (A) 0 %; Eosinophils # (A) 0.1 k/uL (0-0.7); Eosinophils % (A) 2 %; HCT 30.6 % (34.0-46.0); HGB 9.7 gm/dL (11.4-16.0); Hypochromasia Slight; Lymphocytes # (A) 1.2 k/uL (1.0-4.8); Lymphocytes % (A) 24 %; MCH 32.1 pg (25.0-35.0); MCHC 31.7 g/dL (31.0-37.0); MCV 101.5 fL (80.0-100.0); Macrocytosis Slight; Mean Platelet Volume 8.4; Monocytes # (A) 0.5 k/uL (0-1.0); Monocytes % (A) 9 %; Neutrophils # (A) 3.2 k/uL (1.3-7.7); Neutrophils % (A) 62 %; Platelet Count 156 k/uL (150-450); RBC 3.01 m/uL (3.80-5.40); RDW 14.4 % (11.5-15.5); WBC 5.2 k/uL (3.8-10.6)
--- NOTE | 2022-07-29 12:50 | ED ---
SOB HPI - General Chief Complaint: Shortness of Breath Stated Complaint: JAIDEN Time Seen by Provider: 07/29/22 12:15 Source: EMS Mode of arrival: EMS Limitations: no limitations - History of Present Illness Initial Comments: 87-year-old female with past medical history of asthma, DVT presents to the emergency department with hypoxia. She resides at [facility]. Her has been hospitalized for the past week due to Covid. Patient has had some shortness of breath and weakness. She tested Covid positive at the facility yesterday. Today oxygen saturation was 86% therefore EMS was called. Patient does not wear oxygen at home. Patient denies any complaints at this time. Denies chest pain, shortness of breath, abdominal pain. No nausea or vomiting. Patient is unhappy that she is in the emergency department - Related Data Home Medications Medication Instructions Recorded Confirmed Levothyroxine Sodium [Synthroid] 25 mcg PO DAILY@69903/27/14 07/29/22 Benazepril/Hydrochlorothiazide 1 tab PO DAILY@79910/19/16 07/29/22 [Benazepril-Hctz 20-25 mg Tab] Citalopram Hydrobromide [CeleXA] 20 mg PO DAILY@79910/19/16 07/29/22 Montelukast [Singulair] 10 mg PO DAILY@79903/30/18 07/29/22 ALPRAZolam [Xanax] 0.25 mg PO BID@08,199906/15/19 07/29/22 HYDROcodone/APAP 10-325MG [[place] 1 tab PO Q6H PRN 08/18/20 07/29/22 10-325] Ascorbic Acid [Vitamin C chew] 500 mg PO DAILY@79907/29/22 07/29/22 Calcium Citrate/Vitamin D3 1 tab PO DAILY@79907/29/22 07/29/22 [Citracal + D Maximum Caplet] Cholecalciferol [Vitamin D3 (25 50 mcg PO DAILY@79907/29/22 07/29/22 Mcg = 1000 Iu)] Ferrous Sulfate [Feosol] 325 mg PO Q48H 07/29/22 07/29/22 Mirtazapine [Remeron] 45 mg PO DAILY@79907/29/22 07/29/22 Pantoprazole [Protonix] 40 mg PO DAILY@79907/29/22 07/29/22 Vitamin B Complex 1 cap PO DAILY@79907/29/22 07/29/22 Zinc Gluconate [Zinc] 50 mg PO DAILY@79907/29/22 07/29/22 Previous Rx's Medication Instructions Recorded Acetaminophen Tab [Tylenol] 650 mg PO Q6HR PRN tab 08/02/22 Albuterol Inhaler [Ventolin Hfa 2 puff INHALATION RT-QID each 08/02/22 Inhaler] Famotidine [Pepcid] 20 mg PO DAILY tab 08/02/22 Zinc Sulfate [Orazinc] 220 mg PO DAILY cap 08/02/22 dexAMETHasone ORAL [Hexadrol] 6 mg PO DAILY 6 Days #18 tab 08/02/22 Allergies Allergy/AdvReac Type Severity Reaction Status Date / Time epinephrine AdvReac Rapid Verified 07/29/22 13:58 Heart Rate lidocaine AdvReac Rapid Verified 07/29/22 13:58 Heart Rate Review of Systems ROS Statement: Those systems with pertinent positive or pertinent negative responses have been documented in the HPI. ROS Other: All systems not noted in ROS Statement are negative. Past Medical History Past Medical History: Asthma, Deep Vein Thrombosis (DVT), GERD/Reflux, Hypertension, Osteoarthritis (OA), Pneumonia, Thyroid Disorder Additional Past Medical History / Comment(s): Bronchitis, sinus problems, R femoral vein DVT, arthritis multiple joints, osteoporosis, scoliosis, occasional back pain, multiple fractures, falls, double vision in r eye at times, ulcerative colitis once, hypothyriod, incontinent or urine at times. History of Any Multi-Drug Resistant Organisms: None Reported Past Surgical History: Appendectomy, Hysterectomy Additional Past Surgical History / Comment(s): thyroidectomy d/t goiter, orif right femur/ has pins, right tib/fib, right shoulder surgery twice, bilateral cataract surgery with lens implants, R eye strabismus surgery, epidural injections to back. Past Anesthesia/Blood Transfusion Reactions: No Reported Reaction Past Psychological History: No Psychological Hx Reported Smoking Status: Never smoker Past Alcohol Use History: None Reported Past Drug Use History: None Reported - Past Family History Father Family Medical History: Myocardial Infarction ([place]) Additional Family Medical History / Comment(s): Father of a [place] at the age of 78yrs. Mother Family Medical History: Thyroid Disorder Additional Family Medical History / Comment(s): arthritis General Exam Limitations: no limitations General appearance: alert, in no apparent distress Head exam: Present: atraumatic, normocephalic, normal inspection Eye exam: Present: normal appearance, PERRL, EOMI. Absent: scleral icterus, co njunctival injection, periorbital swelling ENT exam: Present: normal exam, mucous membranes moist Neck exam: Present: normal inspection. Absent: tenderness, meningismus, lymphadenopathy Respiratory exam: Present: rales (Bilateral bases). Absent: respiratory distress, wheezes, rhonchi, stridor Cardiovascular Exam: Present: regular rate, normal rhythm, normal heart sounds. Absent: systolic murmur, diastolic murmur, rubs, gallop, clicks GI/Abdominal exam: Present: soft, normal bowel sounds. Absent: distended, tenderness, guarding, rebound, rigid Extremities exam: Present: normal inspection, full ROM, normal capillary refill. Absent: tenderness, pedal edema, joint swelling, calf tenderness Back exam: Present: normal inspection Neurological exam: Present: alert, oriented X3, CN II-XII intact Psychiatric exam: Present: normal affect, normal mood Skin exam: Present: warm, dry, intact, normal color. Absent: rash Course Vital Signs 07/29/22 07/29/22 07/29/22 12:12 12:16 16:03 Temperature 99 F Pulse Rate 67 66 Respiratory 16 20 20 Rate Blood Pressure 144/70 131/63 O2 Sat by Pulse 98 94 L Oximetry 07/29/22 16:38 Temperature Pulse Rate Respiratory Rate Blood Pressure O2 Sat by Pulse 100 Oximetry Medical Decision Making - Medical Decision Making Upon arrival patient was placed into room 6. Through history and physical exam is performed. Patient is saturating 86% on room air and therefore is placed on 2 L nasal cannula. Patient does have bilateral Rales. Laboratory studies are conducted and reviewed. D-dimer 0.67. Chest x-ray demonstrates chronic changes and cardiac mildly without acute process. Patient was given 10 mg of Decadron. Due to her hypoxia recommended admission for pulled consult. Spoke with Dr. Shea who agreed to admit the patient. - Lab Data Result diagrams: 07/30/22 06:06 07/30/22 06:06 Lab Results 07/29/22 07/29/22 07/29/22 Range/Units 12:24 12:24 12:24 WBC 5.2 (3.8-10.6) k/uL RBC 3.01 L (3.80-5.40) m/uL Hgb 9.7 L (11.4-16.0) gm/dL Hct 30.6 L (34.0-46.0) % MCV 101.5 H (80.0-100.0) fL MCH 32.1 (25.0-35.0) pg MCHC 31.7 (31.0-37.0) g/dL RDW 14.4 (11.5-15.5) % Plt Count 156 (150-450) k/uL MPV 8.4 Neutrophils % 62 % Lymphocytes % 24 % Monocytes % 9 % Eosinophils % 2 % Basophils % 0 % Neutrophils # 3.2 (1.3-7.7) k/uL Lymphocytes # 1.2 (1.0-4.8) k/uL Monocytes # 0.5 (0-1.0) k/uL Eosinophils # 0.1 (0-0.7) k/uL Basophils # 0.0 (0-0.2) k/uL Hypochromasia Slight Macrocytosis Slight PT 11.5 (9.0-12.0) sec INR 1.1 (<1.2) APTT 25.6 (22.0-30.0) sec D-Dimer 0.67 H (<0.60) mg/L FEU Sodium 141 (137-145) mmol/L Potassium 3.6 (3.5-5.1) mmol/L Chloride 98 (98-107) mmol/L Carbon Dioxide 27 (22-30) mmol/L Anion Gap 16 mmol/L BUN 27 H (7-17) mg/dL Creatinine 1.30 H (0.52-1.04) mg/dL Est GFR (CKD-EPI)AfAm 43 (>60 ml/min/1.73 sqM) Est GFR (CKD-EPI)NonAf 37 (>60 ml/min/1.73 sqM) Glucose 112 H (74-99) mg/dL Plasma Lactic Acid Zachary (0.7-2.0) mmol/L Calcium 8.8 (8.4-10.2) mg/dL Total Bilirubin 0.5 (0.2-1.3) mg/dL AST 31 (14-36) U/L ALT 12 (4-34) U/L Alkaline Phosphatase 55 (38-126) U/L Troponin I (0.000-0.034) ng/mL NT-Pro-B Natriuret Pep pg/mL Total Protein 8.6 H (6.3-8.2) g/dL Albumin 3.9 (3.5-5.0) g/dL 07/29/22 07/29/22 07/29/22 Range/Units 12:24 12:24 12:24 WBC (3.8-10.6) k/uL RBC (3.80-5.40) m/uL Hgb (11.4-16.0) gm/dL Hct (34.0-46.0) % MCV (80.0-100.0) fL MCH (25.0-35.0) pg MCHC (31.0-37.0) g/dL RDW (11.5-15.5) % Plt Count (150-450) k/uL MPV Neutrophils % % Lymphocytes % % Monocytes % % Eosinophils % % Basophils % % Neutrophils # (1.3-7.7) k/uL Lymphocytes # (1.0-4.8) k/uL Monocytes # (0-1.0) k/uL Eosinophils # (0-0.7) k/uL Basophils # (0-0.2) k/uL Hypochromasia Macrocytosis PT (9.0-12.0) sec INR (<1.2) APTT (22.0-30.0) sec D-Dimer (<0.60) mg/L FEU Sodium (137-145) mmol/L Potassium (3.5-5.1) mmol/L Chloride (98-107) mmol/L Carbon Dioxide (22-30) mmol/L Anion Gap mmol/L BUN (7-17) mg/dL Creatinine (0.52-1.04) mg/dL Est GFR (CKD-EPI)AfAm (>60 ml/min/1.73 sqM) Est GFR (CKD-EPI)NonAf (>60 ml/min/1.73 sqM) Glucose (74-99) mg/dL Plasma Lactic Acid Zachary 1.4 (0.7-2.0) mmol/L Calcium (8.4-10.2) mg/dL Total Bilirubin (0.2-1.3) mg/dL AST (14-36) U/L ALT (4-34) U/L Alkaline Phosphatase (38-126) U/L Troponin I 0.022 (0.000-0.034) ng/mL NT-Pro-B Natriuret Pep 375 pg/mL Total Protein (6.3-8.2) g/dL Albumin (3.5-5.0) g/dL 07/29/22 12:48 EKG demonstrates sinus rhythm with a rate of 63. ID interval 205. QRS 90. QTC of 370. No acute ST segment elevations. Q wave in lead 3 Disposition Clinical Impression: Hypoxia, COVID-19 Disposition: ADMITTED IP TO THIS HOSP Condition: Good Is patient prescribed a controlled substance at d/c from ED?: No Time of Disposition: 14:26 Decision to Admit Reason: Admit from EC Decision Date: 07/29/22 Decision Time: 14:26
[2022-07-29] MEDS ORDERED: DEXAMETHASONE SOD PHOSPHATE 10 MG/ML 1 ML VIAL IVP STA (12:56)
[2022-07-29 13:04] LABS: INR 1.1 (<1.2); Partial Thromboplastin Time 25.6 sec (22.0-30.0); Prothrombin Time 11.5 sec (9.0-12.0)
[2022-07-29 13:07] LABS: Albumin 3.9 g/dL (3.5-5.0); Calcium 8.8 mg/dL (8.4-10.2); Total Bilirubin 0.5 mg/dL (0.2-1.3); Total Protein 8.6 g/dL (6.3-8.2)
[2022-07-29 13:16] LABS: Potassium 3.6 mmol/L (3.5-5.1)
--- NOTE | 2022-07-29 13:40 | XR ---
EXAMINATION TYPE: XR chest 2V DATE OF EXAM: 07/29/2022 COMPARISON: Prior chest x-ray report June 15, 2019 HISTORY: Difficulty in breathing. TECHNIQUE: Frontal and lateral views of the chest are obtained. FINDINGS: Increased soft tissue prominence right paratracheal region noted and described on prior re ports. There is persistent cardiomegaly with ectatic thoracic aorta. The osseous structures remain demineralized. Chronic compression type fractures suspected on lateral view. Degenerative changes arun ateral glenohumeral joints noted on frontal view. Chronic parenchymal changes bilaterally without paul picious focal airspace opacity or pleural effusion seen. IMPRESSION: Chronic changes and cardiomegaly without acute pulmonary process.
[2022-07-29] MEDS ORDERED: NALOXONE 0.4 MG/ML 1 ML VIAL IV PRN (14:26)
[2022-07-29] MEDS ORDERED: HYDROcodone/APAP 10-325MG 1 EACH TAB PO PRN (16:27)
--- NOTE | 2022-07-29 16:28 | P.HPIM ---
History of Present Illness H&P Date: 07/29/22 Chief Complaint: Covid, hypoxia 87-year-old woman with medical history of hypertension, hypothyroidism, iron deficiency, depression/anxiety, asthma presented for hypoxia in the setting of Covid 19 exposure. Patient was a poor historian because she did not want to participate with interview due to being "frustrated". Therefore, history is taken from ER provider signout and chart review. From my understanding, her is currently hospitalized with Covid pneumonia, she was doing well until today when care staff at her group home noted she was hypoxic down to 86 on room air, subsequent we EMS was called due to concern for being Covid positive, and she was brought in by ambulance where she was again noted to be hypoxic on room air to 86, and was placed on oxygen. She subsequently arrived to the emergency room and was again tested off oxygen and was noted to be hypoxic in the 80s, therefore placed on 2 L of nasal cannula. Patient did not want to participate in review of systems due to frustration, kept reporting "I feel like my normal self." In the emergency room, patient was afebrile, 144/70, 98% on 2 L of nasal cannula, heart rate 67. CBC demonstrates anemia to 9.7 which is baseline. Chemistries show a BUN/creatinine of 27/1.3, which is again baseline. Her function tests are unremarkable. Troponin was 0.0-2, BNP was 375. Coags were unremarkable. Chest x-ray shows chronic changes and cardiomegaly without acute ulnar process. EKG shows normal sinus rhythm with no evidence of ischemia. See HPI regarding review of systems Gen: awake, alert HEENT: normocephalic, atraumatic, good hearing acuity, moist mucous membranes Resp: good air exchange, breathing comfortably with no accessory muscle use CVS: good distal perfusion x 4, GI: soft, NTTP, ND : no SPT, no CVAT, rossi catheter not present MSK: no pitting edema, no clubbing Neuro: non-focal, moving all extremities Psych: uncooperative, agitated mood Labs and imaging as above Assessment/plan: Acute hypoxemic respiratory failure Covid 19 -Admit inpatient, telemetry -Pulmonary consult -Dexamethasone 6 milligrams IV daily -Vitamin C, D, zinc -Daily inflammatory markers -Consideration of remdesivir, however, borderline kidney function -Titrate oxygen as able Hypertension Hypothyroidism Iron deficiency anemia Anxiety and depression Asthma without exacerbation -Home medications reviewed and reconciled Patient is full code DVT prophylaxis with heparin 3 times a day Past Medical History Past Medical History: Asthma, Deep Vein Thrombosis (DVT), GERD/Reflux, Hypertension, Osteoarthritis (OA), Pneumonia, Thyroid Disorder Additional Past Medical History / Comment(s): Bronchitis, sinus problems, R femoral vein DVT, arthritis multiple joints, osteoporosis, scoliosis, occasional back pain, multiple fractures, falls, double vision in r eye at times, ulcerative colitis once, hypothyriod, incontinent or urine at times. History of Any Multi-Drug Resistant Organisms: None Reported Past Surgical History: Appendectomy, Hysterectomy Additional Past Surgical History / Comment(s): thyroidectomy d/t goiter, orif right femur/ has pins, right tib/fib, right shoulder surgery twice, bilateral cataract surgery with lens implants, R eye strabismus surgery, epidural injections to back. Past Anesthesia/Blood Transfusion Reactions: No Reported Reaction Past Psychological History: No Psychological Hx Reported Smoking Status: Never smoker Past Alcohol Use History: None Reported Past Drug Use History: None Reported - Past Family History Father Family Medical History: Myocardial Infarction ([place]) Additional Family Medical History / Comment(s): Father of a [place] at the age of 78yrs. Mother Family Medical History: Thyroid Disorder Additional Family Medical History / Comment(s): arthritis Medications and Allergies Home Medications Medication Instructions Recorded Confirmed Type Levothyroxine Sodium [Synthroid] 25 mcg PO DAILY@69903/27/14 07/29/22 History Benazepril/Hydrochlorothiazide 1 tab PO DAILY@79910/19/16 07/29/22 History [Benazepril-Hctz 20-25 mg Tab] Citalopram Hydrobromide [CeleXA] 20 mg PO DAILY@79910/19/16 07/29/22 History Montelukast [Singulair] 10 mg PO DAILY@79903/30/18 07/29/22 History ALPRAZolam [Xanax] 0.25 mg PO BID@799,199906/15/19 07/29/22 History HYDROcodone/APAP 10-325MG [[place] 1 tab PO Q6H PRN 08/18/20 07/29/22 History 10-325] Ascorbic Acid [Vitamin C chew] 500 mg PO DAILY@79907/29/22 07/29/22 History Calcium Citrate/Vitamin D3 1 tab PO DAILY@79907/29/22 07/29/22 History [Citracal + D Maximum Caplet] Cholecalciferol [Vitamin D3 (25 50 mcg PO DAILY@79907/29/22 07/29/22 History Mcg = 1000 Iu)] Ferrous Sulfate [Feosol] 325 mg PO Q48H 07/29/22 07/29/22 History Mirtazapine [Remeron] 45 mg PO DAILY@79907/29/22 07/29/22 History Pantoprazole [Protonix] 40 mg PO DAILY@79907/29/22 07/29/22 History Vitamin B Complex 1 cap PO DAILY@79907/29/22 07/29/22 History Zinc Gluconate [Zinc] 50 mg PO DAILY@79907/29/22 07/29/22 History Allergies Allergy/AdvReac Type Severity Reaction Status Date / Time epinephrine AdvReac Rapid Verified 07/29/22 13:58 Heart Rate lidocaine AdvReac Rapid Verified 07/29/22 13:58 Heart Rate Physical Exam Osteopathic Statement: *. No significant issues noted on an osteopathic structural exam other than those noted in the History and Physical/Consult. Vitals: Vital Signs Temp Pulse Resp BP Pulse Ox 07/29/22 16:03 66 20 131/63 94 L 07/29/22 12:16 20 07/29/22 12:12 99 F 67 16 144/70 98 Intake and Output 07/29/22 07/29/22 07/29/22 06:59 14:59 22:59 Other: Weight 68.039 kg Results CBC & Chem 7: 07/29/22 12:24 07/29/22 12:24 Labs: Abnormal Lab Results - Last 24 Hours (Table) 07/29/22 07/29/22 07/29/22 Range/Units 12:24 12:24 12:24 RBC 3.01 L (3.80-5.40) m/uL Hgb 9.7 L (11.4-16.0) gm/dL Hct 30.6 L (34.0-46.0) % MCV 101.5 H (80.0-100.0) fL D-Dimer 0.67 H (<0.60) mg/L FEU BUN 27 H (7-17) mg/dL Creatinine 1.30 H (0.52-1.04) mg/dL Glucose 112 H (74-99) mg/dL Total Protein 8.6 H (6.3-8.2) g/dL
[2022-07-29] MEDS: ALBUTEROL HFA INHALER INHALATION SCH ×2 (16:37→20:16)
[2022-07-29] MEDS ORDERED: FAMOTIDINE 20 MG TAB PO SCH (21:00)
[2022-07-29] MEDS: ALPRAZolam 0.25 MG TAB PO SCH (22:03)
[2022-07-29] MEDS: FAMOTIDINE 20 MG TAB PO SCH (22:04)
[2022-07-29] MEDS: HEPARIN SODIUM,PORCINE/PF 5,000 UNIT/0.5 ML SYRINGE SQ SCH (23:58)
[2022-07-30 06:44] LABS: Basophils % (A) 0 %; Eosinophils % (A) 1 %; HCT 30.5 % (34.0-46.0); HGB 9.5 gm/dL (11.4-16.0); Hypochromasia Marked; Lymphocytes # (A) 0.5 k/uL (1.0-4.8); Lymphocytes % (A) 11 %; MCH 32.5 pg (25.0-35.0); MCHC 31.1 g/dL (31.0-37.0); MCV 104.4 fL (80.0-100.0); Macrocytosis Moderate; Mean Platelet Volume 8.5; Monocytes # (A) 0.2 k/uL (0-1.0); Monocytes % (A) 6 %; Neutrophils # (A) 3.5 k/uL (1.3-7.7); Neutrophils % (A) 82 %; Platelet Count 148 k/uL (150-450); RBC 2.92 m/uL (3.80-5.40); RDW 14.1 % (11.5-15.5); WBC 4.3 k/uL (3.8-10.6)
[2022-07-30 06:57] LABS: African American GFR (CKD) 58 (>60 ml/min/1.73 sqM); Anion Gap 11 mmol/L; Blood Urea Nitrogen 25 mg/dL (7-17); Calcium 8.3 mg/dL (8.4-10.2); Carbon Dioxide 29 mmol/L (22-30); Chloride 99 mmol/L (98-107); Glucose 127 mg/dL (74-99); LDH 438 U/L (313-618); Magnesium 1.5 mg/dL (1.6-2.3); Non-African American GFR(CKD) 50 (>60 ml/min/1.73 sqM); Potassium 4.2 mmol/L (3.5-5.1); Sodium 139 mmol/L (137-145)
[2022-07-30 07:52] LABS: C Reactive Protein 4.8 mg/dL (<1.0)
[2022-07-30] MEDS ORDERED: ASCORBIC ACID 500 MG PO SCH (08:00)
[2022-07-30] MEDS ORDERED: NON FORMULARY DRUG (Vitamin B Complex [Vitamin B Complex] 1 EACH Capsule) PO SCH (08:00)
[2022-07-30] MEDS ORDERED: RX INFO: IV CONTRAST WAS GIVEN 1 EACH MISC MISCELLANE PRN (08:19)
[2022-07-30] MEDS: HEPARIN SODIUM,PORCINE/PF 5,000 UNIT/0.5 ML SYRINGE SQ SCH ×2 (08:45→18:27)
[2022-07-30] MEDS: CHOLECALCIFEROL 25 MCG (1000 IU) TABLET PO SCH (08:46)
[2022-07-30] MEDS: ALPRAZolam 0.25 MG TAB PO SCH ×2 (08:46→20:52)
[2022-07-30] MEDS: LISINOPRIL-HCTZ 20-25 MG 1 EACH TAB PO SCH (08:46)
[2022-07-30] MEDS: ZINC SULFATE 220 MG CAP PO SCH (08:46)
[2022-07-30] MEDS: FAMOTIDINE 20 MG TAB PO SCH (08:46)
[2022-07-30] MEDS: MIRTAZAPINE 45 MG TABLET PO SCH (08:46)
[2022-07-30] MEDS: CITALOPRAM HYDROBROMIDE 20 MG TAB PO SCH (08:46)
[2022-07-30] MEDS: DEXAMETHASONE SOD PHOSPHATE 10 MG/ML 1 ML VIAL IVP SCH (08:46)
[2022-07-30] MEDS: FERROUS SULFATE 325 MG TAB PO SCH (08:47)
[2022-07-30] MEDS: ASCORBIC ACID 500 MG TAB PO SCH (08:47)
[2022-07-30] MEDS: MONTELUKAST 10 MG TAB PO SCH (08:47)
[2022-07-30] MEDS: LEVOTHYROXINE 25 MCG TAB PO SCH (08:47)
[2022-07-30] MEDS: ALBUTEROL HFA INHALER INHALATION SCH ×4 (09:03→21:17)
--- NOTE | 2022-07-30 11:34 | CT ---
EXAMINATION TYPE: CT angio chest DATE OF EXAM: 07/30/2022 COMPARISON: Radiograph 07/29/2022 HISTORY: 87 year-old female shortness of breath, Elevated d dimer, covid positive TECHNIQUE: Contiguous axial scanning of the chest performed with IV Contrast, patient injected with 4 6 mL of Isovue 300. Coronal/sagittal MIP reconstructions performed. CT DLP: 214.2 mGycm Automated exposure control for dose reduction was used. FINDINGS: Heterogeneous masslike enlargement of the right lobe of the thyroid gland with substernal extension. This measures up to 5.3 cm AP by 3.8 mm wide by 5.3 cm craniocaudal. In addition, there is an inferior isthmic nodule measuring 2.3 cm. Heart borderline enlarged. No flattening of the interventricular septum or reflux of contrast into th e hepatic veins. No pericardial effusion. Extensive LAD coronary artery calcifications are present. Dense contrast bolus within the left brachiocephalic vein obscures the arch vessel origins. Tortuous brachiocephalic artery courses behind the substernal right thyroid lobe. No thoracic lymphadenopathy by CT size criteria. Satisfactory opacification of the pulmonary arterial system. No evidence for pulmonary embolus. Scattered subpleural interstitial thickening and scattered curvilinear opacities and areas of volume loss, likely pleural-parenchymal scarring and cicatricial atelectasis. No consolidation or pleural ef fusion otherwise seen. There is a large hiatal hernia involving at least two thirds of the stomach in the lower chest. Numer ous calcified granulomas within the spleen. A few calcified granulomas involving the liver. Bones: Levoconvex scoliosis centered along the lower thoracic spine. Accentuated thoracic kyphosis. M arked osteopenia. There is a T5 vertebral compression deformity likely chronic given interbody ankylo sis at T5-T6. Band of sclerosis along the superior endplate at L1 with preserved vertebral body height. Refer to sa gittal image 61. Degenerative change of both shoulders. IMPRESSION: 1. NO EVIDENCE FOR PULMONARY EMBOLUS. 2. SCATTERED PULMONARY FIBROSIS AND AREAS OF PLEURAL PARENCHYMAL SCARRING AND CICATRICIAL VOLUME LOSS . 3. LARGE HIATAL HERNIA INVOLVING TWO THIRDS OF THE STOMACH IN THE LOWER CHEST. 4. GOITEROUS ENLARGEMENT OR LARGE NODULES INVOLVING THE RIGHT LOBE OF THYROID GLAND RESULTING IN SUBS TERNAL EXTENSION. ADDITIONAL 2.3 CM INFERIOR ISTHMIC NODULE. THIS CAN BE FURTHER EVALUATED WITH THYRO ID ULTRASOUND. 5. A BAND OF SCLEROSIS INVOLVING THE SUPERIOR ENDPLATE OF L1 BUT WITH PRESERVED VERTEBRAL BODY HEIGHT . CORRELATE FOR ANY FOCAL PAIN HERE TO EXCLUDE A SUBTLE ENDPLATE FRACTURE.
--- NOTE | 2022-07-30 12:30 | P.CNPUL ---
History of Present Illness Consult date: 07/30/22 Requesting physician: Xavier Shea Reason for consult: dyspnea, abnormal CXR/CT Chief complaint: Shortness of breath, weakness History of present illness: This is a pleasant 87-year-old female patient who resides at [facility] once with her who had been hospitalized last week for COVID-19. She had developed shortness of breath and weakness and tested positive at the facility on 07/28/2022. Oxygen saturation was 86% yesterday and EMS was called and is brought into the emergency room. She was found to have continued low saturations are 86% and placed on 2 L/m per nasal cannula. Chest x-ray showed increased soft tissue prominence in the right paratracheal region. Persistent cardiomegaly with ectatic thoracic aorta. Chronic parenchymal changes bilaterally. No acute pulmonary process. White count 4.3. Hemoglobin 9.5. Platelets 148. Lymphocytes 0.5. D-dimer initially 0.67, currently 1.55. Sodium 139. Potassium 4.2. Bicarb 29. BUN 25. Creatinine 1.01. Glucose 127. AST 31. AST 12. LDH 438. C-reactive protein 4.8. She's been initiated on Decadron, albuterol, heparin for DVT prophylaxis and vitamin supplements. She is seen today in the regular medical floor. She is currently sitting up in a chair at the bedside. Awake and alert in no acute distress. She is maintaining O2 saturations at 99% on 2 L/m per nasal cannula. Review of Systems REVIEW OF SYSTEMS: CONSTITUTIONAL: Generalized weakness. Denies any recent significant weight loss or weight gain. EYES: Denies change in vision. EARS, NOSE, MOUTH, THROAT: Denies headaches, denies sore throat. CARDIOVASCULAR: Denies chest pain, palpitations or syncopal episodes. RESPIRATORY: Positive for shortness of breath, cough, congestion no hemoptysis. GASTROINTESTINAL: Denies change in appetite, denies abdominal pain GENITOURINARY: Denies hematuria, denies infections. MUSKULOSKELETAL: Denies pain, denies swelling. INTEGUMENTARY: Denies rash, denies eczema. NEUROLOGICAL: Denies recent memory loss, no recent seizure activity. PSYCHIATRIC: Denies anxiety, denies depression. HEMATOLOGIC/LYMPHATIC: Denies anemia, denies enlarged lymph nodes. Past Medical History Past Medical History: Asthma, Deep Vein Thrombosis (DVT), GERD/Reflux, Hypertension, Osteoarthritis (OA), Pneumonia, Thyroid Disorder Additional Past Medical History / Comment(s): Bronchitis, sinus problems, R femoral vein DVT, arthritis multiple joints, osteoporosis, scoliosis, occasional back pain, multiple fractures, falls, double vision in r eye at times, ulcerative colitis once, hypothyriod, incontinent or urine at times. Primary concerned that she may have multiple myeloma, has not followed up at this time History of Any Multi-Drug Resistant Organisms: None Reported Past Surgical History: Appendectomy, Hysterectomy Additional Past Surgical History / Comment(s): thyroidectomy d/t goiter, orif right femur/ has pins, right tib/fib, right shoulder surgery twice, bilateral cataract surgery with lens implants, R eye strabismus surgery, epidural inject ions to back. Past Anesthesia/Blood Transfusion Reactions: No Reported Reaction Past Psychological History: No Psychological Hx Reported Additional Psychological History / Comment(s): Pt resides at [facility] with her spouse. She uses a walker to ambulate. Her spouse manages her medications. She goes to the dining room for meals. Smoking Status: Never smoker Past Alcohol Use History: None Reported Past Drug Use History: None Reported - Past Family History Father Family Medical History: Myocardial Infarction (CT) Additional Family Medical History / Comment(s): Father of a CT at the age of 78yrs. Mother Family Medical History: Thyroid Disorder Additional Family Medical History / Comment(s): arthritis Medications and Allergies Home Medications Medication Instructions Recorded Confirmed Type Levothyroxine Sodium [Synthroid] 25 mcg PO DAILY@69903/27/14 07/29/22 History Benazepril/Hydrochlorothiazide 1 tab PO DAILY@79910/19/16 07/29/22 History [Benazepril-Hctz 20-25 mg Tab] Citalopram Hydrobromide [CeleXA] 20 mg PO DAILY@79910/19/16 07/29/22 History Montelukast [Singulair] 10 mg PO DAILY@79903/30/18 07/29/22 History ALPRAZolam [Xanax] 0.25 mg PO BID@08,199906/15/19 07/29/22 History HYDROcodone/APAP 10-325MG [[place] 1 tab PO Q6H PRN 08/18/20 07/29/22 History 10-325] Ascorbic Acid [Vitamin C chew] 500 mg PO DAILY@79907/29/22 07/29/22 History Calcium Citrate/Vitamin D3 1 tab PO DAILY@79907/29/22 07/29/22 History [Citracal + D Maximum Caplet] Cholecalciferol [Vitamin D3 (25 50 mcg PO DAILY@79907/29/22 07/29/22 History Mcg = 1000 Iu)] Ferrous Sulfate [Feosol] 325 mg PO Q48H 07/29/22 07/29/22 History Mirtazapine [Remeron] 45 mg PO DAILY@79907/29/22 07/29/22 History Pantoprazole [Protonix] 40 mg PO DAILY@79907/29/22 07/29/22 History Vitamin B Complex 1 cap PO DAILY@79907/29/22 07/29/22 History Zinc Gluconate [Zinc] 50 mg PO DAILY@79907/29/22 07/29/22 History Allergies Allergy/AdvReac Type Severity Reaction Status Date / Time epinephrine AdvReac Rapid Verified 07/29/22 13:58 Heart Rate lidocaine AdvReac Rapid Verified 07/29/22 13:58 Heart Rate Physical Exam Vitals: Vital Signs Temp Pulse Pulse Resp BP BP Pulse Ox 07/30/22 10:51 97.3 F L 60 20 169/93 100 07/30/22 07:37 97.4 F L 55 L 16 146/85 100 07/30/22 02:00 97.6 F 70 18 162/88 99 07/29/22 20:40 98.8 F 18 140/72 98 07/29/22 20:00 98.8 F 67 16 140/72 98 07/29/22 16:38 100 07/29/22 16:03 66 20 131/63 94 L 07/29/22 12:16 20 Intake and Output 07/29/22 07/30/22 07/30/22 22:59 06:59 14:59 Other: Voiding Method Bedside Commode Bedside Commode Diaper Diaper # Voids 2 # Bowel Movements 1 Weight 68.039 kg GENERAL EXAM: Alert, pleasant 87-year-old female, on 2 L nasal cannula, comfortable in no apparent distress. HEAD: Normocephalic. EYES: Normal reaction of pupils, equal size. NOSE: Clear with pink turbinates. THROAT: No erythema or exudates. NECK: Right thyroid goiter, no JVD. CHEST: No chest wall deformity. LUNGS: Equal air entry with no crackles, wheeze, rhonchi or dullness. CVS: S1 and S2 normal with no audible murmur, regular rhythm. ABDOMEN: No hepatosplenomegaly, normal bowel sounds, no guarding or rigidity. SPINE: Scoliosis SKIN: No rashes CENTRAL NERVOUS SYSTEM: No focal deficits, tone is normal in all 4 extremities. EXTREMITIES: There is no peripheral edema. No clubbing, no cyanosis. Peripheral pulses are intact. Results - Laboratory Findings CBC and BMP: 07/30/22 06:06 07/30/22 06:06 PT/INR, D-dimer PT 11.5 sec (9.0-12.0) 07/29/22 12:24 INR 1.1 (<1.2) 07/29/22 12:24 D-Dimer 1.55 mg/L FEU (<0.60) H 07/30/22 06:06 Abnormal lab findings: Abnormal Labs 07/29/22 07/29/22 07/29/22 12:24 12:24 12:24 RBC 3.01 L Hgb 9.7 L Hct 30.6 L MCV 101.5 H Plt Count Lymphocytes # D-Dimer 0.67 H BUN 27 H Creatinine 1.30 H Glucose 112 H Calcium Magnesium C-Reactive Protein Total Protein 8.6 H 07/30/22 07/30/22 07/30/22 06:06 06:06 06:06 RBC 2.92 L Hgb 9.5 L Hct 30.5 L MCV 104.4 H Plt Count 148 L Lymphocytes # 0.5 L D-Dimer 1.55 H BUN 25 H Creatinine Glucose 127 H Calcium 8.3 L Magnesium 1.5 L C-Reactive Protein 4.8 H Total Protein - Diagnostic Findings Chest x-ray: image reviewed Assessment and Plan Assessment: Acute hypoxemic respiratory failure secondary to COVID-19 infection without clear evidence of pneumonia. He tested positive on 07/28/2022 at outside facility Generalized weakness secondary to above Elevated d-dimer, CT angiogram ruled out pulmonary emboli. Chronic scattered pulmonary fibrosis Large hiatal hernia involving two thirds of the stomach in the lower chest Goiter is enlargement or large nodules are on the right thyroid gland resulting and substernal extension Hypothyroidism with previous history of thyroidectomy due to goiter suspected on the left Hypertension History of DVT Scoliosis Plan: The patient was seen and evaluated Chest x-ray, CAT scan, labs and medications reviewed Titrate down the FiO2 as tolerated Continue Decadron, heparin, albuterol Continue vitamin supplements Probable discharge in the a.m. We will continue to follow make further recommendations based on her clinical status I have personally seen and examined the patient, performed the documentation and the assessment and plan as written. Number of minutes spent on the visit: 20.
--- NOTE | 2022-07-30 14:49 | P.PN ---
Subjective Progress Note Date: 07/30/22 Patient is doing well today no complaints Gen: awake, alert HEENT: normocephalic, atraumatic, good hearing acuity, moist mucous membranes Resp: good air exchange, breathing comfortably with no accessory muscle use CVS: good distal perfusion x 4, GI: soft, NTTP, ND : no SPT, no CVAT, rossi catheter not present MSK: no pitting edema, no clubbing Neuro: non-focal, moving all extremities Psych: uncooperative, agitated mood Labs and imaging as above Assessment/plan: Acute hypoxemic respiratory failure Covid 19 -Admit inpatient, telemetry -Pulmonary consult -Dexamethasone 6 milligrams IV daily -Vitamin C, D, zinc -Daily inflammatory markers -Consideration of remdesivir, however, borderline kidney function -Titrate oxygen as able Hypertension Hypothyroidism Iron deficiency anemia Anxiety and depression Asthma without exacerbation -Home medications reviewed and reconciled Patient is full code DVT prophylaxis with heparin 3 times a day Objective - Vital Signs Vital signs: Vital Signs Temp 97.3 F L 07/30/22 10:51 Pulse 60 07/30/22 10:51 Resp 20 07/30/22 10:51 BP 169/93 07/30/22 10:51 Pulse Ox 100 07/30/22 10:51 FiO2 Intake & Output 07/29/22 07/30/22 07/30/22 18:59 06:59 18:59 Weight 68.039 kg 68.039 kg Other: Voiding Method Bedside Commode Bedside Commode Diaper Diaper # Voids 2 # Bowel Movements 1 - Labs CBC & Chem 7: 07/30/22 06:06 07/30/22 06:06 Labs: Abnormal Lab Results - Last 24 Hours (Table) 07/30/22 07/30/22 07/30/22 Range/Units 06:06 06:06 06:06 RBC 2.92 L (3.80-5.40) m/uL Hgb 9.5 L (11.4-16.0) gm/dL Hct 30.5 L (34.0-46.0) % MCV 104.4 H (80.0-100.0) fL Plt Count 148 L (150-450) k/uL Lymphocytes # 0.5 L (1.0-4.8) k/uL D-Dimer 1.55 H (<0.60) mg/L FEU BUN 25 H (7-17) mg/dL Glucose 127 H (74-99) mg/dL Calcium 8.3 L (8.4-10.2) mg/dL Magnesium 1.5 L (1.6-2.3) mg/dL C-Reactive Protein 4.8 H (<1.0) mg/dL
[2022-07-31] MEDS: HEPARIN SODIUM,PORCINE/PF 5,000 UNIT/0.5 ML SYRINGE SQ SCH ×4 (00:09→23:12)
[2022-07-31] MEDS: ALBUTEROL HFA INHALER INHALATION SCH ×4 (07:16→19:42)
[2022-07-31] MEDS ORDERED: ONDANSETRON 4 MG/2 ML VIAL IVP PRN (07:57)
[2022-07-31] MEDS: ASCORBIC ACID 500 MG TAB PO SCH (11:58)
[2022-07-31] MEDS: DEXAMETHASONE SOD PHOSPHATE 10 MG/ML 1 ML VIAL IVP SCH (11:58)
[2022-07-31] MEDS: ALPRAZolam 0.25 MG TAB PO SCH ×2 (11:58→19:55)
[2022-07-31] MEDS: MIRTAZAPINE 45 MG TABLET PO SCH (11:58)
[2022-07-31] MEDS: LISINOPRIL-HCTZ 20-25 MG 1 EACH TAB PO SCH (11:58)
[2022-07-31] MEDS: MONTELUKAST 10 MG TAB PO SCH (11:59)
[2022-07-31] MEDS: FAMOTIDINE 20 MG TAB PO SCH (11:59)
[2022-07-31] MEDS: ZINC SULFATE 220 MG CAP PO SCH (11:59)
[2022-07-31] MEDS: LEVOTHYROXINE 25 MCG TAB PO SCH (11:59)
[2022-07-31] MEDS: CHOLECALCIFEROL 25 MCG (1000 IU) TABLET PO SCH (11:59)
[2022-07-31] MEDS: CITALOPRAM HYDROBROMIDE 20 MG TAB PO SCH (11:59)
--- NOTE | 2022-07-31 12:46 | P.PN ---
Subjective Progress Note Date: 07/31/22 This is a pleasant 87-year-old female patient who resides at [facility] once with her who had been hospitalized last week for COVID-19. She had developed shortness of breath and weakness and tested positive at the facility on 07/28/2022. Oxygen saturation was 86% yesterday and EMS was called and is brought into the emergency room. She was found to have continued low saturations are 86% and placed on 2 L/m per nasal cannula. Chest x-ray showed increased soft tissue prominence in the right paratracheal region. Persistent cardiomegaly with ectatic thoracic aorta. Chronic parenchymal changes bilaterally. No acute pulmonary process. White count 4.3. Hemoglobin 9.5. Platelets 148. Lymphocytes 0.5. D-dimer initially 0.67, currently 1.55. Sodium 139. Potassium 4.2. Bicarb 29. BUN 25. Creatinine 1.01. Glucose 127. AST 31. AST 12. LDH 438. C-reactive protein 4.8. She's been initiated on Decadron, albuterol, heparin for DVT prophylaxis and vitamin supplements. She is seen today in the regular medical floor. She is currently sitting up in a chair at the bedside. Awake and alert in no acute distress. She is maintaining O2 saturations at 99% on 2 L/m per nasal cannula. The patient is seen today 07/31/2022 in follow-up on the regular medical floor. She is currently sitting up in bed. Awake and alert in no acute distress. She denies any worsening shortness of breath, cough or congestion. She is maintaining O2 saturations in the 90s on room air. She's afebrile. Hemodynamically stable. She is having some issues with nausea and weakness. No new labs today. She remains on Decadron, vitamin supplements. Heparin for DVT prophylaxis. Objective - Vital Signs Vital signs: Vital Signs Temp 98.4 F 07/31/22 07:16 Pulse 73 07/31/22 07:16 Resp 17 07/31/22 07:16 BP 148/84 07/31/22 07:16 Pulse Ox 96 07/31/22 07:16 FiO2 Intake & Output 07/30/22 07/31/22 07/31/22 18:59 06:59 18:59 Output Total 400 Balance -400 Output: Urine 400 Other: Voiding Method Bedside Commode External Catheter Diaper # Voids 1 # Bowel Movements 1 - Exam GENERAL EXAM: Alert, pleasant 87-year-old female, on room air, comfortable in no apparent distress. HEAD: Normocephalic. EYES: Normal reaction of pupils, equal size. NOSE: Clear with pink turbinates. THROAT: No erythema or exudates. NECK: Right thyroid goiter, no JVD. CHEST: No chest wall deformity. LUNGS: Equal air entry with no crackles, wheeze, rhonchi or dullness. CVS: S1 and S2 normal with no audible murmur, regular rhythm. ABDOMEN: No hepatosplenomegaly, normal bowel sounds, no guarding or rigidity. SPINE: Scoliosis SKIN: No rashes CENTRAL NERVOUS SYSTEM: No focal deficits, tone is normal in all 4 extremities. EXTREMITIES: There is no peripheral edema. No clubbing, no cyanosis. Peripheral pulses are intact. - Labs CBC & Chem 7: 07/30/22 06:06 07/30/22 06:06 Labs: Abnormal Lab Results - Last 24 Hours (Table) 07/30/22 Range/Units 06:06 Procalcitonin 0.13 H (0.02-0.09) ng/mL Assessment and Plan Assessment: Acute hypoxemic respiratory failure secondary to COVID-19 infection without clear evidence of pneumonia. She tested positive on 07/28/2022 Generalized weakness secondary to above Elevated d-dimer, CT angiogram ruled out pulmonary emboli. Chronic scattered pulmonary fibrosis Large hiatal hernia involving two thirds of the stomach in the lower chest Goiter is enlargement or large nodules are on the right thyroid gland resulting and substernal extension Hypothyroidism with previous history of thyroidectomy due to goiter suspected on the left Hypertension History of DVT Scoliosis Plan: The patient was seen and evaluated Stable and on room air Cleared for discharge from the pulmonary standpoint I have personally seen and examined the patient, performed the documentation and the assessment and plan as written. Number of minutes spent on the visit: 10.
[2022-08-01] MEDS: ALBUTEROL HFA INHALER INHALATION SCH ×4 (07:50→20:39)
[2022-08-01] MEDS: ASCORBIC ACID 500 MG TAB PO SCH (10:35)
[2022-08-01] MEDS: ALPRAZolam 0.25 MG TAB PO SCH ×2 (10:35→21:15)
[2022-08-01] MEDS: FERROUS SULFATE 325 MG TAB PO SCH (10:35)
[2022-08-01] MEDS: CITALOPRAM HYDROBROMIDE 20 MG TAB PO SCH (10:35)
[2022-08-01] MEDS: DEXAMETHASONE SOD PHOSPHATE 10 MG/ML 1 ML VIAL IVP SCH (10:36)
[2022-08-01] MEDS: LISINOPRIL-HCTZ 20-25 MG 1 EACH TAB PO SCH (10:37)
[2022-08-01] MEDS: LEVOTHYROXINE 25 MCG TAB PO SCH (10:37)
[2022-08-01] MEDS: MIRTAZAPINE 45 MG TABLET PO SCH (10:37)
[2022-08-01] MEDS: FAMOTIDINE 20 MG TAB PO SCH (10:37)
[2022-08-01] MEDS: HEPARIN SODIUM,PORCINE/PF 5,000 UNIT/0.5 ML SYRINGE SQ SCH ×2 (10:37→15:23)
[2022-08-01] MEDS: CHOLECALCIFEROL 25 MCG (1000 IU) TABLET PO SCH (10:37)
[2022-08-01] MEDS: MONTELUKAST 10 MG TAB PO SCH (10:37)
[2022-08-01] MEDS: ZINC SULFATE 220 MG CAP PO SCH (10:37)
--- NOTE | 2022-08-01 14:05 | P.PN ---
Subjective Progress Note Date: 08/01/22 Patient is no longer requiring oxygen, but reportedly is weaker than normal. PT consult pending Gen: awake, alert HEENT: normocephalic, atraumatic, good hearing acuity, moist mucous membranes Resp: good air exchange, breathing comfortably with no accessory muscle use CVS: good distal perfusion x 4, GI: soft, NTTP, ND : no SPT, no CVAT, rossi catheter not present MSK: no pitting edema, no clubbing Neuro: non-focal, moving all extremities Psych: uncooperative, agitated mood Labs and imaging as above Assessment/plan: Acute hypoxemic respiratory failure Covid 19 -Admit inpatient, telemetry -Pulmonary consult -Dexamethasone 6 milligrams IV daily -Vitamin C, D, zinc -Daily inflammatory markers -Consideration of remdesivir, however, borderline kidney function -Titrate oxygen as able Hypertension Hypothyroidism Iron deficiency anemia Anxiety and depression Asthma without exacerbation -Home medications reviewed and reconciled Patient is full code DVT prophylaxis with heparin 3 times a day Objective - Vital Signs Vital signs: Vital Signs Temp 99.2 F 08/01/22 11:41 Pulse 65 08/01/22 11:41 Resp 17 08/01/22 11:41 BP 115/72 08/01/22 11:41 Pulse Ox 91 L 08/01/22 11:41 FiO2 Intake & Output 07/31/22 08/01/22 08/01/22 18:59 06:59 18:59 Output Total 1402 2 Balance -1402 -2 Output: Urine 1400 Stool 2 2 Other: Voiding Method External Catheter Incontinent # Voids 1 - Labs CBC & Chem 7: 07/30/22 06:06 07/30/22 06:06
[2022-08-01] MEDS: ACETAMINOPHEN TAB 325 MG TAB PO PRN (18:24)
[2022-08-02] MEDS: HEPARIN SODIUM,PORCINE/PF 5,000 UNIT/0.5 ML SYRINGE SQ SCH ×2 (00:56→08:52)
[2022-08-02 05:45] VITALS: RESP 18
[2022-08-02] MEDS: ALBUTEROL HFA INHALER INHALATION SCH ×2 (08:48→12:19)
[2022-08-02] MEDS: ZINC SULFATE 220 MG CAP PO SCH (08:53)
[2022-08-02] MEDS: FAMOTIDINE 20 MG TAB PO SCH (08:53)
[2022-08-02] MEDS: CHOLECALCIFEROL 25 MCG (1000 IU) TABLET PO SCH (08:53)
[2022-08-02] MEDS: ASCORBIC ACID 500 MG TAB PO SCH (08:53)
[2022-08-02] MEDS: MIRTAZAPINE 45 MG TABLET PO SCH (08:54)
[2022-08-02] MEDS: LEVOTHYROXINE 25 MCG TAB PO SCH (08:54)
[2022-08-02] MEDS: ALPRAZolam 0.25 MG TAB PO SCH (08:54)
[2022-08-02] MEDS: MONTELUKAST 10 MG TAB PO SCH (08:54)
[2022-08-02] MEDS: CITALOPRAM HYDROBROMIDE 20 MG TAB PO SCH (08:54)
[2022-08-02] MEDS: LISINOPRIL-HCTZ 20-25 MG 1 EACH TAB PO SCH (08:54)
[2022-08-02] MEDS: DEXAMETHASONE SOD PHOSPHATE 10 MG/ML 1 ML VIAL IVP SCH ×2 (10:03→10:15)
[2022-08-02] MEDS ORDERED: dexAMETHasone 2 MG TAB PO SCH (10:15)
[2022-08-02] MEDS: ACETAMINOPHEN TAB 325 MG TAB PO PRN (12:23)
[2022-08-02 12:39] VITALS: BP 133/68; PULSE 62; TEMP 98.7
--- NOTE | 2022-08-02 13:13 | P.DS ---
Providers Date of admission: 07/29/22 14:29 Expected date of discharge: 08/02/22 Attending physician: Xavier Shea MD Consults: 07/29/22 14:26 Consult Physician Urgent Consulting Provider: Luís Carbajal Consult Reason/Comments: acute hypoxic resp failure, covid-19 Do you want consulting provider notified?: Yes Primary care physician: Stated None Hospital Course: Acute hypoxemic respiratory failure Covid 19 Hypertension Hypothyroidism Iron deficiency anemia Anxiety and depression Asthma without exacerbation 87-year-old woman with medical history of hypertension, hypothyroidism, iron deficiency, depression/anxiety, asthma presented for hypoxia in the setting of Covid 19 exposure. In the emergency room, patient was afebrile, 144/70, 98% on 2 L of nasal cannula, heart rate 67. CBC demonstrates anemia to 9.7 which is baseline. Chemistries show a BUN/creatinine of 27/1.3, which is again baseline. Her function tests are unremarkable. Troponin was 0.0-2, BNP was 375. Coags were unremarkable. Chest x-ray shows chronic changes and cardiomegaly without acute ulnar process. EKG shows normal sinus rhythm with no evidence of ischemia. Patient was minutes medicine and treated with supportive therapy as well as dexamethasone for Covid 19 related respiratory failure. She was able to be weaned to room air across 2 days. Patient does have trouble with weakness and bed transfer, physical therapy recommended their services as an outpatient. CTA was done during this hospitalization to rule out pulmonary embolism and was a negative, however, it did show incidental finding of diffuse pulmonary fibrosis. [id number] was notified of these findings and recommended that she follow-up with pulmonology. Patient will be discharged back to assisted living facility with home care. I spent 35 minutes coordinating this discharge, discharge date 08/02 Gen: awake, alert HEENT: normocephalic, atraumatic, good hearing acuity, moist mucous membranes Resp: good air exchange, breathing comfortably with no accessory muscle use CVS: good distal perfusion x 4, GI: soft, NTTP, ND : no SPT, no CVAT, rossi catheter not present MSK: no pitting edema, no clubbing Neuro: non-focal, moving all extremities Psych: uncooperative, agitated mood Patient Condition at Discharge: Good Plan - Discharge Summary Discharge Rx Participant: No New Discharge Prescriptions: New Famotidine [Pepcid] 20 mg PO DAILY tab Acetaminophen Tab [Tylenol] 650 mg PO Q6HR PRN tab PRN Reason: Fever And/ Or Pain Albuterol Inhaler [Ventolin Hfa Inhaler] 2 puff INHALATION RT-QID each dexAMETHasone ORAL [Hexadrol] 6 mg PO DAILY 6 Days #18 tab Zinc Sulfate [Orazinc] 220 mg PO DAILY cap Continue Levothyroxine Sodium [Synthroid] 25 mcg PO DAILY@0700 Citalopram Hydrobromide [CeleXA] 20 mg PO DAILY@0800 Benazepril/Hydrochlorothiazide [Benazepril-Hctz 20-25 mg Tab] 1 tab PO DAILY@0800 Montelukast [Singulair] 10 mg PO DAILY@0800 ALPRAZolam [Xanax] 0.25 mg PO BID@08,1999 HYDROcodone/APAP 10-325MG [[place] 10-325] 1 tab PO Q6H PRN PRN Reason: Pain Zinc Gluconate [Zinc] 50 mg PO DAILY@0800 Mirtazapine [Remeron] 45 mg PO DAILY@0800 Vitamin B Complex 1 cap PO DAILY@0800 Cholecalciferol [Vitamin D3 (25 Mcg = 1000 Iu)] 50 mcg PO DAILY@0800 Ascorbic Acid [Vitamin C chew] 500 mg PO DAILY@0800 Pantoprazole [Protonix] 40 mg PO DAILY@0800 Ferrous Sulfate [Feosol] 325 mg PO Q48H Calcium Citrate/Vitamin D3 [Citracal + D Maximum Caplet] 1 tab PO DAILY@0800 Discharge Medication List Levothyroxine Sodium [Synthroid] 25 mcg PO DAILY@0700 03/27/14 [History] Benazepril/Hydrochlorothiazide [Benazepril-Hctz 20-25 mg Tab] 1 tab PO DAILY@0800 10/19/16 [History] Citalopram Hydrobromide [CeleXA] 20 mg PO DAILY@0800 10/19/16 [History] Montelukast [Singulair] 10 mg PO DAILY@0800 03/30/18 [History] ALPRAZolam [Xanax] 0.25 mg PO BID@0800,199906/15/19 [History] HYDROcodone/APAP 10-325MG [[place] 10-325] 1 tab PO Q6H PRN 09/28/20 [History] Ascorbic Acid [Vitamin C chew] 500 mg PO DAILY@79907/29/22 [History] Calcium Citrate/Vitamin D3 [Citracal + D Maximum Caplet] 1 tab PO DAILY@79907/29/22 [History] Cholecalciferol [Vitamin D3 (25 Mcg = 1000 Iu)] 50 mcg PO DAILY@79907/29/22 [History] Ferrous Sulfate [Feosol] 325 mg PO Q48H 07/29/22 [History] Mirtazapine [Remeron] 45 mg PO DAILY@79907/29/22 [History] Pantoprazole [Protonix] 40 mg PO DAILY@79907/29/22 [History] Vitamin B Complex 1 cap PO DAILY@79907/29/22 [History] Zinc Gluconate [Zinc] 50 mg PO DAILY@79907/29/22 [History] Acetaminophen Tab [Tylenol] 650 mg PO Q6HR PRN tab 08/02/22 [Rx] Albuterol Inhaler [Ventolin Hfa Inhaler] 2 puff INHALATION RT-QID each 08/02/22 [Rx] Famotidine [Pepcid] 20 mg PO DAILY tab 08/02/22 [Rx] Zinc Sulfate [Orazinc] 220 mg PO DAILY cap 08/02/22 [Rx] dexAMETHasone ORAL [Hexadrol] 6 mg PO DAILY 6 Days #18 tab 08/02/22 [Rx] Follow up Appointment(s)/Referral(s): Luís Carbajal MD [STAFF PHYSICIAN] - 1 Week (Pulmonary Fibrosis) [facility], [NON-STAFF] - As Needed None,Stated [Primary Care Provider] - 1-2 days Discharge Disposition: DC/TRNS INTERMEDIATE CARE FAC
== END 2022-08-02 14:00 | disposition home health service (06) | DRG 177 ==
LOC: EC 12:09 → 4SSUR 14:29
PROVIDERS: ADMIT Internal Medicine; ATTEND Internal Medicine
DX: U07.1 COVID-19 (principal); J96.01 Acute respiratory failure with hypoxia; K51.90 Ulcerative colitis, unspecified, without complications; J84.10 Pulmonary fibrosis, unspecified; I11.9 Hypertensive heart disease without heart failure; E89.0 Postprocedural hypothyroidism; J45.909 Unspecified asthma, uncomplicated; K44.9 Diaphragmatic hernia without obstruction or gangrene; D50.9 Iron deficiency anemia, unspecified; F32.A Depression, unspecified; F41.9 Anxiety disorder, unspecified; K21.9 Gastro-esophageal reflux disease without esophagitis; M54.9 Dorsalgia, unspecified; M81.0 Age-related osteoporosis without current pathological fracture; M15.9 Polyosteoarthritis, unspecified; M41.9 Scoliosis, unspecified; H53.2 Diplopia; R32 Unspecified urinary incontinence; Z79.890 Hormone replacement therapy; Z79.899 Other long term (current) drug therapy; Z86.718 Personal history of other venous thrombosis and embolism; Z87.01 Personal history of pneumonia (recurrent); Z88.4 Allergy status to anesthetic agent; Z88.8 Allergy status to other drugs, medicaments and biological substances
CPT/HCPCS: 36415; 71046; 71275; 80048; 80053; 83605; 83615; 83735; 83880; 84145; 84484; 85025; 85379; 85610; 85730; 86140; 93005; 94640; 94760; 96374; 99285